=== PATIENT | male | born 1975 | race Caucasian/White ===

== ENCOUNTER 2019-12-10 06:12 | Inpatient (IN) ==
[2019-12-10] MEDS ORDERED: dilTIAZem HCl 5 MG/ML 5 ML VIAL IV STA (06:48)
[2019-12-10] MEDS ORDERED: STAT IV Infusion **Titration per Protocol STA (06:48)
[2019-12-10 06:54] LABS: Basophils # (auto) 0.04 K/uL (0-0.2); Basophils % (auto) 0.3 %; Eosinophils # (auto) 0.17 K/uL (0-0.5); Eosinophils % (auto) 1.3 %; Hematocrit (blood only) 46.3 % (42-52); Hemoglobin 15.7 g/dL (14.0-18.0); Immature Granulocytes # (auto) 0.03 K/uL (0.00-0.02); Immature Granulocytes % (auto) 0.2 %; Lymphocytes # (auto) 2.38 K/uL (1.2-3.4); Lymphocytes % (auto) 17.6 %; Mean Corpuscular Hemoglobin 31.7 pg (25-34); Mean Corpuscular Hgb Conc 33.9 g/dL (32-36); Mean Corpuscular Volume 93.5 fL (80-100); Mean Platelet Volume 11.6 fL (7.4-10.4); Monocytes # (auto) 0.84 K/uL (0.11-0.59); Monocytes % (auto) 6.2 %; Neutrophils # (auto) 10.07 K/uL (1.4-6.5); Neutrophils % (auto) 74.4 %; Platelet Count 276 K/uL (130-400); RDW Coefficient of Variation 12.9 % (11.5-14.5); RDW Standard Deviation 44.1 fL (36.4-46.3); Red Blood Count 4.95 M/uL (4.7-6.1); White Blood Count 13.53 K/uL (4.8-10.8)
[2019-12-10] MEDS ORDERED: SODIUM CHLORIDE 0.9% 500 ML IV SCH (07:00)
--- NOTE | 2019-12-10 07:04 | XRay Report ---
XR chest 1V portable CLINICAL HISTORY: Atypical chest pain COMPARISON STUDY: CT scan dated 12/02/2018 FINDINGS: The heart appears mildly enlarged. There is an old right clavicular fracture. There are equ ivocal wispy right perihilar airspace opacities. There is no lobar consolidation. There are no pleura l effusions. There is no failure.[ IMPRESSION: 1. Mild cardiomegaly 2. Equivocal wispy right perihilar airspace opacities ACT 112: Negative or not required by law. Electronically signed by: Alphonso Estrada M.D. 12/10/2019 7:02 AM
[2019-12-10] MEDS: dilTIAZem HCL 125 MG in DEXTROSE 5% 100 ML IV SCH ×2 (07:10→19:52)
[2019-12-10 07:13] LABS: Albumin Level 3.6 gm/dl (3.4-5.0); BUN Creatinine Ratio 10.3 (10-20); Calcium 9.7 mg/dl (8.5-10.1); Creatinine Clr Calc Pharmacy 94.7 ml/min; Est GFR (Non-African American) 75.9; Potassium 4.1 mmol/L (3.5-5.1)
[2019-12-10 07:16] LABS: Bilirubin,Total 0.9 mg/dl (0.2-1); Globulin 3.5 gm/dl (2.5-4.0); Total Protein 7.1 gm/dl (6.4-8.2)
[2019-12-10] MEDS ORDERED: KETOROLAC 30 MG/ML VIAL IV STA (07:22)
[2019-12-10] MEDS ORDERED: IOVERSOL 100ml IV ONE (07:36)
--- NOTE | 2019-12-10 07:54 | CT Scan Report ---
CT abd pelvis IV con only CLINICAL HISTORY: Left lower quadrant abdominal pain COMPARISON STUDY: 12/02/2018 TECHNIQUE: The patient was scanned in a dynamic helical fashion during intravenous administration of 94 cc of Optiray 320. A dose lowering technique was utilized adhering to the principles of ALARA. CT DOSE: 324.95 mGy.cm FINDINGS: Lower chest: There are small bilateral pleural effusions right greater than left. There is septal jason ma. Liver: There is stable 1 cm right lobe hepatic hypodensity, likely representing a cyst. There is mild periportal edema, finding which could be secondary to aggressive IV hydration. Gallbladder: There is mild pericholecystic fluid. No gallstones are visualized. Spleen: Normal in size and attenuation. Pancreas: Unremarkable. Adrenal glands: Unremarkable. Kidneys: There is interval development of lower pole left renal wedge-shaped hypodensity suspicious f or infarcts. Focal pyelonephritis developing abscesses could appear similar but is felt to be statist ically much less likely. Bowel: There are no transition zones indicate bowel obstruction. The appendix appears normal. There i s no acute diverticulitis. Peritoneum: There is no intraperitoneal free air or abdominal ascites. Vasculature: The abdominal aorta is normal in course and caliber. Adenopathy: None. Pelvic viscera: The bladder, and pelvic viscera are unremarkable. Skeletal structures: No destructive osseous lesions are seen. IMPRESSION: 1. Interval development of lower pole left renal wedge-shaped hypodensity suspicious for renal infarc ts 2. No evidence of bowel obstruction. No evidence of free air 3. Normal appendix. No evidence of acute diverticulitis 4. Bilateral pleural effusions right greater than left, and interstitial pulmonary edema 5. Periportal edema and pericholecystic fluid, likely secondary to passive congestion or aggressive h ydration. ACT 112: Negative or not required by law. Electronically signed by: Alphonso Estrada M.D. 12/10/2019 7:53 AM
[2019-12-10 08:04] LABS: INR 1.3 (0.9-1.1); Partial Thromboplastin Ratio 0.9; Partial Thromboplastin Time 25.7 Seconds (21.0-31.0); Prothrombin Time 13.4 Seconds (9.0-12.0)
--- NOTE | 2019-12-10 08:18 | Emergency Department Note ---
History of Present Illness General Chief complaint: Abdominal Pain Stated complaint: SEVERE ABDOMINAL PAIN,BACK PAIN Time Seen by Provider: 12/10/19 06:47 Source: patient Mode of arrival: ambulatory Limitations: no limitations History of Present Illness Provider complaint: Left lower quadrant abdominal pain Maximum Pain Intensity: 9 This is a 44-year-old male who presents to the ED with chief complaint of left lower quadrant abdominal pain. The patient states that it started around 1:30 in the morning. No radiation. He reports tenderness in the left lower quadrant as well. It seems to be worse this with walking. He has not taken anything for it. The patient was found by nursing staff to have elevated heart rate. Initial twelve-lead EKG showed A. fib with RVR with a heart rate in the 150s. The patient did report feeling a little pounding in his chest when he felt his chest the other day but does not seem to have much symptoms in the way of his A. fib with RVR. Home Medications Home Medications Medication Instructions Recorded Confirmed Type omeprazole 20 mg capsule,delayed 20 mg PO QAM #90 cap 04/17/19 12/10/19 Rx release Allergies Allergy/AdvReac Type Severity Reaction Status Date / Time No Known Allergies Allergy Unverified 12/10/19 06:21 Past Med/Surg History Medical History Alcohol abuse Anxiety Depression Drug abuse GERD without esophagitis Marijuana use Multiple facial fractures Surgical History No significant past surgical history Social History Smoking Status: Never smoker Hx Alcohol Use: Yes Alcohol type: beer Alcohol Intake Frequency Comment: 30 Hx Substance Use: Yes Preferred Language: Spanish marital status: Current Living Situation: Spouse and Family current occupational status: employed 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 Feels Safe at Home: Yes Dental Care, Regularly: No Physical Activity Frequency: Daily Physical Activity Frequency Comment: active physical job Seatbelt Use: always Sunscreen Use: Yes Review of Systems A total of 10 systems reviewed and were otherwise negative Physical Exam Vital Signs Vital Signs - 24 hr 12/10/19 06:15 12/10/19 06:42 12/10/19 06:53 Temperature 36.5 C Temperature Source Oral Pulse Rate 156 H 170 H Pulse Rate from SpO2 Sensor Respiratory Rate 20 27 H Respiratory Effort / Characteristics Non-Labored Spontaneous Respiratory Depth Normal Respiratory Pattern Regular Blood Pressure 127/99 179/60 H Blood Pressure Mean 108 119 Blood Pressure Position Sitting Pulse Oximetry 97 99 98 Oxygen Delivery Method Room Air Room Air Sepsis Recent Fever Within 48 Hours No Sepsis New/Unexplained Change in Mental Status No Sepsis Action Taken by Nursing No Action Required 12/10/19 07:09 12/10/19 07:13 12/10/19 07:32 Temperature Temperature Source Pulse Rate 137 H 128 H 122 H Pulse Rate from SpO2 Sensor 108 H 115 H Respiratory Rate 21 21 Respiratory Effort / Characteristics Respiratory Depth Respiratory Pattern Blood Pressure 134/86 115/91 98/77 L Blood Pressure Mean 104 98 97 Blood Pressure Position Pulse Oximetry 96 97 Oxygen Delivery Method Sepsis Recent Fever Within 48 Hours Sepsis New/Unexplained Change in Mental Status Sepsis Action Taken by Nursing 12/10/19 07:47 12/10/19 08:01 12/10/19 08:10 Temperature Temperature Source Pulse Rate 105 H 111 H 125 H Pulse Rate from SpO2 Sensor 76 85 Respiratory Rate 17 13 29 H Respiratory Effort / Characteristics Respiratory Depth Respiratory Pattern Blood Pressure 104/78 115/86 Blood Pressure Mean 91 91 Blood Pressure Position Pulse Oximetry 95 98 92 Oxygen Delivery Method Sepsis Recent Fever Within 48 Hours Sepsis New/Unexplained Change in Mental Status Sepsis Action Taken by Nursing 12/10/19 08:30 12/10/19 09:00 12/10/19 09:30 Temperature Temperature Source Pulse Rate 128 H 110 H 108 H Pulse Rate from SpO2 Sensor 82 81 88 Respiratory Rate 31 H 12 17 Respiratory Effort / Characteristics Respiratory Depth Respiratory Pattern Blood Pressure 107/83 124/88 118/69 Blood Pressure Mean 100 97 79 Blood Pressure Position Pulse Oximetry 96 96 97 Oxygen Delivery Method Sepsis Recent Fever Within 48 Hours Sepsis New/Unexplained Change in Mental Status Sepsis Action Taken by Nursing CONSTITUTIONAL/VITAL SIGNS: Reviewed / noted above. GENERAL: Non-toxic in appearance. INTEGUMENTARY: Warm, dry, and [place]. HEAD: Normocephalic. EYES: without scleral icterus or trauma. ENT/OROPHARYNX: clear and moist. LYMPHADENOPATHY/NECK: Is supple without lymphadenopathy or meningismus. RESPIRATORY: Lungs clear and equal. CARDIOVASCULAR: Rapid rate and irregular rhythm. GI/ABDOMEN: Soft and tender in the left lower quadrant. No organomegaly or pulsatile mass. No rebound or guarding. Normal bowel sounds. EXTREMITIES: Warm and well perfused. BACK: No CVA tenderness. NEUROLOGICAL: Intact without focal deficits. PSYCHIATRIC: normal affect. MUSCULOSKELETAL: Normally developed with good muscle tone. TRIAGE NURSING DOCUMENTATION REVIEWED. Course Administered Medications Diltiazem HCl 125 mg/ Dextrose 125 mls @ 10 mls/hr IV .[id number] RIGOBERTO; Protocol Stop: 01/09/20 06:59 Last Titration: 12/10/19 08:13 Dose: 10 mg/hr, 10 mls/hr Documented by: [id number] Cosigned by: [id number] Admin: 12/10/19 07:10 Dose: 5 mg/hr, 5 mls/hr Documented by: [id number] Cosigned by: [id number] Heparin Sodium/Dextrose (Heparin Sodium/Dextrose) 25,000 units in 500 mls @ 30 mls/hr IV .[id number] RIGOBERTO; Protocol Stop: 01/09/20 08:29 Last Admin: 12/10/19 09:36 Dose: 1,500 units/hr, 30 mls/hr Documented by: [id number] Cosigned by: [id number] Discontinued Medications Diltiazem HCl (Diltiazem Hcl 5 Mg/Ml 5 Ml Vial) 25 mg IV NOW STA Stop: 12/10/19 06:49 Last Admin: 12/10/19 07:07 Dose: 25 mg Documented by: [id number] Cosigned by: [id number] Heparin Sodium (Porcine) (Heparin Sod 5,000 Unit/0.5 Ml Vial) Confirm Administered Dose 10,000 units .ROUTE .STK-MED ONE Stop: 12/10/19 09:07 Last Admin: 12/10/19 09:38 Dose: Not Given Documented by: [id number] Heparin Sodium (Porcine) (Heparin Sod (Porcine) 1000 Unit/Ml 10 Ml Vial) Confirm Administered Dose 10,000 units .ROUTE .STK-MED ONE Stop: 12/10/19 09:29 Last Admin: 12/10/19 09:37 Dose: 7,000 units Documented by: [id number] Cosigned by: [id number] Heparin Sodium/Dextrose (Heparin Iv Standard With Bolus) 1 ea IV NOW STA; Protocol Stop: 12/10/19 08:29 Last Admin: 12/10/19 09:38 Dose: Not Given Documented by: [id number] Sodium Chloride (Nss) 500 mls @ 999 mls/hr IV .Q31M RIGOBERTO Stop: 12/10/19 07:30 Last Infusion: 12/10/19 07:39 Dose: 0 mls/hr Documented by: [id number] Admin: 12/10/19 07:08 Dose: 999 mls/hr Documented by: [id number] Ioversol (Ioversol 100ml) 94 ml IV ONCE ONE Stop: 12/10/19 07:37 Last Admin: 12/10/19 07:37 Dose: 94 ml Documented by: [id number] Ketorolac Tromethamine (Ketorolac 30 Mg/Ml Vial) 30 mg IV NOW STA Stop: 12/10/19 07:23 Last Admin: 12/10/19 07:49 Dose: 30 mg Documented by: [id number] Miscellaneous (Stat Iv Infusion Titration Per Protocol) 1 ea N/A NOW STA Stop: 12/10/19 06:49 Last Admin: 12/10/19 07:13 Dose: Not Given Documented by: [id number] Medical Decision Making Differential Diagnosis Differential considered: pancreatitis, hepatitis, acute cholecystitis, AAA, UTI, pyelonephritis, kidney stones, appendicitis, diverticulitis, shingles, bowel obstruction, mesenteric ischemia, intussusception,hernia, testicular torsion, The differential that was considered includes acute myocardial infarction, acute coronary syndrome, myocarditis, pericarditis, pericardial effusions /tamponade, esophageal perforation, thoracic aortic dissection, pulmonary embolism, pneumonia, pneumothorax, pancreatitis, shingles, acute cholecystitis, perforated abdominal viscus. Medical Records Attestation: I reviewed the patient's medical records. Home Medications Current Medication List: was personally reviewed by me Laboratory Data Attestation: I reviewed the patient's lab results. Result diagrams: 12/10/19 06:36 12/10/19 06:36 Lab Results 12/10/19 12/10/19 12/10/19 Range/Units 06:36 06:36 06:36 WBC 13.53 H (4.8-10.8) K/uL RBC 4.95 (4.7-6.1) M/uL Hgb 15.7 (14.0-18.0) g/dL Hct 46.3 (42-52) % MCV 93.5 (80-100) fL MCH 31.7 (25-34) pg MCHC 33.9 (32-36) g/dL RDW Std Deviation 44.1 (36.4-46.3) fL RDW Coeff of Sharmin 12.9 (11.5-14.5) % Plt Count 276 (130-400) K/uL MPV 11.6 H (7.4-10.4) fL Immature Gran % (Auto) 0.2 % Neut % (Auto) 74.4 % Lymph % (Auto) 17.6 % Pine % (Auto) 6.2 % Eos % (Auto) 1.3 % Baso % (Auto) 0.3 % Neut # (Auto) 10.07 H (1.4-6.5) K/uL Lymph # (Auto) 2.38 (1.2-3.4) K/uL Pine # (Auto) 0.84 H (0.11-0.59) K/uL Eos # (Auto) 0.17 (0-0.5) K/uL Baso # (Auto) 0.04 (0-0.2) K/uL Immature Gran # (Auto) 0.03 H (0.00-0.02) K/uL PT 13.4 H (9.0-12.0) Seconds INR 1.3 H (0.9-1.1) APTT 25.7 (21.0-31.0) Seconds PTT Ratio 0.9 Sodium 139 (136-145) mmol/L Potassium 4.1 (3.5-5.1) mmol/L Chloride 109 H (98-107) mmol/L Carbon Dioxide 23 (21-32) mmol/L Anion Gap 7.0 (3-11) BUN 12 (7-18) mg/dl Creatinine 1.17 (0.6-1.4) mg/dl Est Cr Clr Drug Dosing 94.7 ml/min Est GFR ( Amer) 88.0 Est GFR (Non-Af Amer) 75.9 BUN/Creatinine Ratio 10.3 (10-20) Glucose 159 H (70-99) mg/dl Calcium 9.7 (8.5-10.1) mg/dl Total Bilirubin 0.9 (0.2-1) mg/dl AST 24 (15-37) U/L ALT 45 (12-78) U/L Alkaline Phosphatase 74 (45-117) U/L Troponin I (0-0.045) ng/ml Total Protein 7.1 (6.4-8.2) gm/dl Albumin 3.6 (3.4-5.0) gm/dl Globulin 3.5 (2.5-4.0) gm/dl Albumin/Globulin Ratio 1.0 (0.9-2) Lipase 116 (73-393) U/L 12/10/19 Range/Units 06:36 WBC (4.8-10.8) K/uL RBC (4.7-6.1) M/uL Hgb (14.0-18.0) g/dL Hct (42-52) % MCV (80-100) fL MCH (25-34) pg MCHC (32-36) g/dL RDW Std Deviation (36.4-46.3) fL RDW Coeff of Sharmin (11.5-14.5) % Plt Count (130-400) K/uL MPV (7.4-10.4) fL Immature Gran % (Auto) % Neut % (Auto) % Lymph % (Auto) % Pine % (Auto) % Eos % (Auto) % Baso % (Auto) % Neut # (Auto) (1.4-6.5) K/uL Lymph # (Auto) (1.2-3.4) K/uL Pine # (Auto) (0.11-0.59) K/uL Eos # (Auto) (0-0.5) K/uL Baso # (Auto) (0-0.2) K/uL Immature Gran # (Auto) (0.00-0.02) K/uL PT (9.0-12.0) Seconds INR (0.9-1.1) APTT (21.0-31.0) Seconds PTT Ratio Sodium (136-145) mmol/L Potassium (3.5-5.1) mmol/L Chloride (98-107) mmol/L Carbon Dioxide (21-32) mmol/L Anion Gap (3-11) BUN (7-18) mg/dl Creatinine (0.6-1.4) mg/dl Est Cr Clr Drug Dosing ml/min Est GFR ( Amer) Est GFR (Non-Af Amer) BUN/Creatinine Ratio (10-20) Glucose (70-99) mg/dl Calcium (8.5-10.1) mg/dl Total Bilirubin (0.2-1) mg/dl AST (15-37) U/L ALT (12-78) U/L Alkaline Phosphatase (45-117) U/L Troponin I 0.019 (0-0.045) ng/ml Total Protein (6.4-8.2) gm/dl Albumin (3.4-5.0) gm/dl Globulin (2.5-4.0) gm/dl Albumin/Globulin Ratio (0.9-2) Lipase (73-393) U/L Imaging Data Radiologist's Impression: CT scan of the abdomen pelvis: IMPRESSION: 1. Interval development of lower pole left renal wedge-shaped hypodensity suspicious for renal infarcts 2. No evidence of bowel obstruction. No evidence of free air 3. Normal appendix. No evidence of acute diverticulitis 4. Bilateral pleural effusions right greater than left, and interstitial pul monary edema 5. Periportal edema and pericholecystic fluid, likely secondary to passive congestion or aggressive hydration. Chest x-ray:XR chest 1V portable CLINICAL HISTORY: Atypical chest pain COMPARISON STUDY: CT scan dated 12/02/2018 FINDINGS: The heart appears mildly enlarged. There is an old right clavicular fracture. There are equivocal wispy right perihilar airspace opacities. There is no lobar consolidation. There are no pleural effusions. There is no failure.[ IMPRESSION: 1. Mild cardiomegaly 2. Equivocal wispy right perihilar airspace opacities ECG Data Attestation: I personally reviewed and interpreted this ECG as follows: Indication: chest pain and tachycardia Rate (beats per minute): 158 Rhythm: atrial fibrillation Findings: no PVC and no ST elevation MDM Narrative This is a 44-year-old male who presents to the ED with a chief complaint of left lower quadrant abdominal pain. He was found to be in A. fib with RVR with a heart rate around 160. His vital signs were otherwise stable. He had tenderness on exam to the left lower quadrant. A CT scan of the abdomen pelvis reveals a left renal infarct. Chest x-ray was equivocal for a right perihilar airspace opacity. He does not have any clinical symptoms of pneumonia. CBC and chemistry panel was unremarkable. Troponin is negative. Twelve-lead EKG showed A. fib with a heart rate of 158. The patient was given IV Cardizem drip and Cardizem bolus. The patient was given IV heparin. He will be seen by the hospitalist for further inpatient evaluation and care. He was given IV Toradol for his discomfort. Impression & Plan Atrial fibrillation with RVR, Infarction of kidney Critical Care Time Critical Care Time: Yes Total Critical Care Time: 35 I have personally spent 35 minutes of critical care time in the direct management of this patient. This includes bedside care, interpretation of diagnostic studies, and testing, discussion with consultants, patient, and family members, and other required patient management activities. This 35 minutes is in excess of all separately billable procedures. Discharge Plan Visit Data Chief Complaint: Abdominal Pain Stated Complaint: SEVERE ABDOMINAL PAIN,BACK PAIN ED Provider: Honorio Stoddard Discharge Problem: Atrial fibrillation with RVR, Infarction of kidney Patient Disposition: Being Evaluated by Hospitalist Condition: Good Discharge Instructions Interventions: ED Discharge Assessment Last Done: 12/10/19 09:39 Forms Stand Alone Forms: My Care2Manage Prescriptions Prescriptions: No Action omeprazole 20 mg capsule,delayed release(DR/EC) 20 mg PO QAM Qty: 90 RF: 3 Referrals Referrals: Kristian Jarrett CRNP [Primary Care Provider] -
[2019-12-10] MEDS ORDERED: HEPARIN SOD 5,000 UNIT/0.5 ML VIAL ONE (09:06)
[2019-12-10] MEDS ORDERED: HEPARIN SOD (PORCINE) 1000 UNIT/ML 10 ML VIAL ONE (09:28)
[2019-12-10] MEDS: HEPARIN SODIUM/DEXTROSE 25,000 UNITS/500 ML BAG IV SCH (09:36)
[2019-12-10] MEDS ORDERED: ACETAMINOPHEN 325 MG TAB PO PRN (10:19)
[2019-12-10] MEDS ORDERED: POLYETHYLENE (MIRALAX) 17 GM PACK PO PRN (10:19)
[2019-12-10] MEDS ORDERED: ALUMINUM/MAGNESIUM SUSP 30 ML UDC PO PRN (10:19)
[2019-12-10] MEDS ORDERED: MAGNESIUM HYDROXIDE SUSP 30 ML UDC PO PRN (10:19)
[2019-12-10] MEDS: PANTOprazole 40 MG TAB PO SCH ×2 (11:56→12:34)
[2019-12-10] MEDS: MoRPHine SULFATE 2 MG/ML CARP IV PRN ×2 (11:57→15:30)
[2019-12-10 12:17] LABS: Appearance Urine Clear (Clear); Bacteria Urine Automated Negative (Negative); Blood Urine Negative (Negative); Color Urine Dark Yellow; Glucose Urine UA Negative (Negative); Ketones Urine Trace (Negative); Leukocyte Esterase Urine Negative (Negative); Nitrite Urine Negative (Negative); Protein Urine 2+ (Negative); RBC Urine Automated 0-4 /hpf (0-4); Urobilinogen Urine Negative (Negative); pH Urine 6.5 (4.5-7.5)
[2019-12-10 12:24] LABS: Specific Gravity Urine >= 1.045 (1.000-1.030)
--- NOTE | 2019-12-10 12:25 | XCELERA ---
[id number]
[2019-12-10 12:26] LABS: Bilirubin Urine Negative (Negative); Ictotest Urine Negative (Negative)
--- NOTE | 2019-12-10 14:08 | History & Physical Report ---
Date of Service December 10, 2019 Assessment & Plan (1) Atrial fibrillation with RVR: EtOH abuse vs ?underlying lung disease as culprits vs less likely idiopathic -rates improving on diltiazem - continue -continue heparin gtt - then anticipate transition to DOAC TSH ok in april (consider recheck as outpt - does not show other s/s hyperthyroid, rate control improving easily - and with whole clinical scenario high probability of sick euthyroid type reading - will hold on recheck now), echo ordered (2) Infarction of kidney: d/w nephro and vascular to confirm - but no intervention likely to be of benefit --> anticoagulation, supportive care. follow Cr. appears to be fairly small area on CT. Cr 1.17 now, up from 1.0 on last check -- continue to treand (3) Alcohol abuse: discussed need to reduce intake or cease - particularly given that ongoing EtOH intake will likely make afib harder to control (4) Industrial fumes exposure: given that chronic lung disease creating backpressure on R heart could be possible cause for afib (less likely than EtOH but possible) - CT chest to eval lung parenchyma (5) GERD without esophagitis: PPI (6) DVT prophylaxis: heparin gtt for now (7) Discharge planning issues: admit tele Admission and Anticipated Discharge Date Admission Date: December 10, 2019 History of Present Illness Chief Complaint: flank pain Primary Care Provider: AMINA Lozano woke up around 1:30 w flank pain -notes fairly intense and normally he notes he has a pretty high tolerance for pain. pain unremitting - came to ER for further eval - found to be in afib/RVR and also found to have renal infarct appearing to be embolic notes that for the last week or so he's had cough and mild dyspnea - not enough to get in the way of what he's normally doing - but still something noticeable. notes that last night she saw him breathing really heavily but he apparently didn't really feel sx then. 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 no other active / acute sx. ROS otherwise negative except for as above dad has CAD/pacer - first onset of heart disease probably mid 60's pt drinks about 6 beers a day, smokes marijuana more or less daily. 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 no surgical hx Allergies Allergy/AdvReac Type Severity Reaction Status Date / Time No Known Allergies Allergy Unverified 12/10/19 06:21 Home Medications Home Medications Medication Instructions Recorded Confirmed Type omeprazole 20 mg capsule,delayed 20 mg PO QAM #90 cap 04/17/19 12/10/19 Rx release Past Med/Surg History Medical History Alcohol abuse Anxiety Depression Drug abuse GERD without esophagitis Marijuana use Multiple facial fractures Surgical History No significant past surgical history Social History Smoking Status: Never smoker Do You Dip or Chew Tobacco: Yes; Tobacco Cessation Education Requested by Patient: No Hx Alcohol Use: Yes Alcohol type: beer Alcohol Intake Frequency Comment: 30 Hx Substance Use: Yes Preferred Language: [place]an Communication Ability: Effective Beliefs That Will Affect Care: None marital status: Current Living Situation: Spouse current occupational status: employed 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 Other Information That Helps Us Care for You: No Feels Safe at Home: Yes Safety Concerns: Feels Safe At This Time Dental Care, Regularly: No Physical Activity Frequency: Daily Physical Activity Frequency Comment: active physical job Seatbelt Use: always Sunscreen Use: Yes Assistive Devices: None Review of Systems Review of Systems: All systems reviewed & are unremarkable except as noted in HPI & below Physical Exam Physical Exam: gen aaox3 pleasant nad heent nc at mmm cardio irreg irreg rate around 100-120 when i see him no noted r/m/g lungs faint base crackles nonspecific no other r/r/w good effort no accessory muscle use. occassional faint dry cough no conversational dyspnea abd soft nd (+) L abd and L CVA tenderness no guarding no rebound no rigidity ext no c/c/e no calf tenderness skin no rashes no pallor or icterus neuro cn 2-12 grossly intact gross motor and sensory intact without notable focal deficits msk - normal spinal alignment, CVA tenderness does not appear to reflect rib or muscle tenderness. no notable joint effusions or restrictions mental good recent and remote recall normal (quite stoic) mood and affect good judgement and insight Results & Data Results & Data ([facility]) Vital Signs (Past 12 Hours) Vital Signs Temp Pulse Pulse Resp BP BP Pulse Ox 12/10/19 10:19 97.7 F 81 20 103/46 L 95 12/10/19 09:30 108 H 17 118/69 97 12/10/19 09:00 110 H 12 124/88 96 12/10/19 08:30 128 H 31 H 107/83 96 12/10/19 08:10 125 H 29 H 92 12/10/19 08:01 111 H 13 115/86 98 12/10/19 07:47 105 H 17 104/78 95 12/10/19 07:32 122 H 98/77 L 12/10/19 07:13 128 H 21 115/91 97 12/10/19 07:09 137 H 21 134/86 96 12/10/19 06:53 98 12/10/19 06:42 170 H 27 H 179/60 H 99 12/10/19 06:15 97.7 F 156 H 20 127/99 97 Code Status & VTE Plan VTE Prophylaxis Plan VTE Prophylaxis will be ordered: Yes PG Care Time/CCT Total # of Minutes Spent Total Time Spent with Patient: Total time spent is greater than 50% in coordination of care (as documented) at patient's floor/unit and/or counseling patient: Coding Level of Care Code 36882 Initial Inpt Care Lvl 3 Diagnoses Atrial fibrillation with RVR I48.91 Infarction of kidney N28.0 Alcohol abuse F10.10 Industrial fumes exposure Z77.098 GERD without esophagitis K21.9 DVT prophylaxis Z29.9 Discharge planning issues Z02.9
[2019-12-10] MEDS: ONDANSETRON INJ 2 MG/ML 2 ML VIAL IV PRN (15:30)
[2019-12-10] MEDS ORDERED: HYDROmorphone INJ 1 MG/ML SYRINGE IV PRN (15:42)
[2019-12-10 16:31] LABS: Partial Thromboplastin Ratio 2.2
[2019-12-10 16:36] LABS: Partial Thromboplastin Time 62.1 Seconds (21.0-31.0)
--- NOTE | 2019-12-10 18:31 | Cardiology Consultation ---
Date of Consultation December 10, 2019 Assessment & Plan (1) Atrial fibrillation with RVR: (2) Dilated cardiomyopathy: (3) Chronic systolic heart failure: (4) Mitral regurgitation: (5) Pulmonary hypertension: (6) Alcohol abuse: (7) Infarction of kidney: ASSESSMENT/PLAN: 1. AFib with RVR: We discussed the diagnosis in detail. AFib could be due to alcohol, cardiomyopathy, or mitral regurgitation. Would suspect alcohol is playing a large role. Agree with rate control strategy, especially as he has demonstrated embolic event with renal infarct. Given CHF, would recommend discontinuation of diltiazem. Start metoprolol tartrate 25 mg p.o. q.6 hours. Can also add digoxin if necessary. Agree with anticoagulation therapy. If cannot achieve rate control, would then recommend transesophageal echo and cardioversion. Otherwise, would anticoagulate for 4 weeks and then cardiovert given recent embolic event. 2. Cardiomyopathy: Likely due to alcohol or tachycardia in the setting of AFib. It is less likely that this is primarily from his mitral valve given the fact that his mitral valve appears otherwise structurally normal with annular dilation, likely from his cardiomyopathy. Initiating metoprolol but on discharge would recommend metoprolol succinate. Recommend Entresto later this hospitalization. Given orthopnea and rales, will give 1 dose of Lasix. Start spironolactone 25 mg. We discussed the fact that alcohol cessation and rate control should hopefully improve his LV systolic function. If there is no significant improvement in his LV systolic function with standard treatment and alcohol cessation, would consider ischemic evaluation. There is no urgent indication for angiography. He has no angina despite regular cardiovascular exercise/activity. Will first attempt to optimize medical therapy and then reassess. 3. Chronic systolic CHF: He has been having symptoms for approximately 3 weeks consistent with CHF, especially given his findings today. He does not appear to be severely hypervolemic but likely to have elevated left-sided filling pressures. Lasix 20 mg IV x1. Strict I&Os. Daily weights. Low-sodium diet. 4. Mitral regurgitation: Likely due to annular dilation from his cardiomyopathy. Hopefully with improvement in his LV systolic function, MR will improve. Will continue to monitor. 5. Pulmonary hypertension: Likely secondary to severe MR/CHF. Diurese as above. 6. Alcohol abuse: We discussed in detail the importance of alcohol cessation. Alcohol is a direct toxin to his myocardium and should be avoided. Monitor for withdrawal symptoms. 7. Renal infarct: As per primary service. On heparin drip. Likely due to cardiac embolic source from left atrial appendage or even possibly LV thrombus given reduced LV systolic function. There was no thrombus noted on echo. 8. Disposition: Cardiology will continue to follow. Patient care was discussed with Dr. Arzate of the primary hospitalist service. Highly complex medical issues. Thank you for allowing me to participate in the care of your patient. Please call for any other questions or concerns. Sincerely, Yonis Briseno M.D. History of Present Illness Reason for Consultation: Afib with mitral regurgitation and CHF Requesting Physician: Tamir Arzate DO Attending Physician: Tamir Arzate DO History of Present Illness Mr. Bearden is a very pleasant 44-year-old gentleman with a history of alcohol abuse, who presented on 12/02/2019 with acute left sided abdominal pain. He was noted to be in atrial fibrillation with rapid ventricular response and also diagnosed with left renal infarct. At approximately 1:30 a.m., he was awakened by left lower abdominal pain. He was able to go back to sleep and at 5:00 a.m. the pain became much more severe. He came to the emergency department for further evaluation. He was found to be in atrial fibrillation with rapid ventricular response, a new diagnosis for him. He admits that he felt his heart racing a couple of days ago for 2 or 3 minutes. He thought it was anxiety. He was asymptomatic from his AFib today, denying palpitations. He denies shortness of breath with exertion. He denies chest pain, syncope, near-syncope, edema, bleeding such as melena, hematochezia, or hematuria. Last week, he hunted bear, estimating 120 miles in the [facility] over a 5 day span. He denied dyspnea or chest discomfort despite significant cardiovascular exercise. He has been experiencing orthopnea however for the past 3 weeks. 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 He states that he has had this before but it typically resolves within 1 week. His symptoms this time however have persisted for 3 weeks. He has been sleeping with his head elevated. He admits to consuming a six-pack of beer per day and up to 12-13 beers each day on the weekend. He has been doing this since the age of 19. He admits that he has had some close calls health [place] with his alcohol consumption. Last year, he lost a good friend due to alcohol. While here, emergency department initiated diltiazem drip with improvement of his heart rate. During her visit earlier today, he denied any specific symptoms other than abdominal discomfort. Review of systems: As above. Review of systems otherwise negative/unremarkable. Family history: Father has pacemaker. Paternal grandfather from [place] at the age of 92. Social history: Quit smoking in approximately 2002 after approximately 3 pack years. Consumes a six-pack of beer per day with 12-13 beers each day on the weekend. Has been consuming alcohol heavily since the age of 19. Smokes marijuana. No other drugs. Lives at home with his and 2 daughters. 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 He was unaccompanied. Allergies Allergy/AdvReac Type Severity Reaction Status Date / Time No Known Allergies Allergy Unverified 12/10/19 06:21 Home Medications Home Medications Medication Instructions Recorded Confirmed Type omeprazole 20 mg capsule,delayed 20 mg PO QAM #90 cap 04/17/19 12/10/19 Rx release Patient History Medical History Alcohol abuse Anxiety Depression Drug abuse GERD without esophagitis Marijuana use Multiple facial fractures Surgical History No significant past surgical history Social History Smoking Status: Never smoker Do You Dip or Chew Tobacco: Yes; Tobacco Cessation Education Requested by Patient: No Hx Alcohol Use: Yes Alcohol type: beer Alcohol Intake Frequency Comment: 30 Hx Substance Use: Yes Preferred Language: [place] Communication Ability: Effective Beliefs That Will Affect Care: None marital status: Current Living Situation: Spouse current occupational status: employed 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 Alert and oriented. HEENT: Anicteric sclera. Neck: Mild JVD. No bruits. Normal carotid upstrokes bilaterally. Cardiac: PMI was nondisplaced. No ventricular heave. Irregularly irregular.. Normal S1-S2. 2/6 holosystolic murmur best heard at the apex. No rubs or gallops. Pulmonary: Bibasilar rales. Abdomen: Soft, nondistended, with normoactive bowel sounds. No bruits noted. Tenderness noted, especially left lower quadrant. Extremities: 2+ radial pulses bilaterally. 2+ posterior tibialis pulses bilaterally. No edema or cyanosis. No palpable cords. Psychiatric: Affect appears appropriate. Results & Data ([facility]) Vital Signs (Past 12 Hours) Vital Signs Temp Pulse Pulse Resp BP BP Pulse Ox 12/10/19 15:29 36.4 C L 91 H 20 120/75 97 12/10/19 10:19 36.5 C 81 20 103/46 L 95 12/10/19 09:30 108 H 17 118/69 97 12/10/19 09:00 110 H 12 124/88 96 12/10/19 08:30 128 H 31 H 107/83 96 12/10/19 08:10 125 H 29 H 92 12/10/19 08:01 111 H 13 115/86 98 12/10/19 07:47 105 H 17 104/78 95 12/10/19 07:32 122 H 98/77 L 12/10/19 07:13 128 H 21 115/91 97 12/10/19 07:09 137 H 21 134/86 96 12/10/19 06:53 98 12/10/19 06:42 170 H 27 H 179/60 H 99 Intake & Output 12/08/19 12/09/19 12/10/19 12/11/19 06:59 06:59 06:59 06:59 Intake Total 857.417 / 857.417 Output Total 200 / 200 Balance 657.417 / 657.417 Weight 86.3 kg 86.3 kg Laboratory Results Laboratory Results - last 24 hr 12/10/19 12/10/19 12/10/19 06:36 06:36 06:36 WBC 13.53 H RBC 4.95 Hgb 15.7 Hct 46.3 MCV 93.5 MCH 31.7 MCHC 33.9 RDW Std Deviation 44.1 RDW Coeff of Sharmin 12.9 Plt Count 276 MPV 11.6 H Immature Gran % (Auto) 0.2 Neut % (Auto) 74.4 Lymph % (Auto) 17.6 [place] % (Auto) 6.2 Eos % (Auto) 1.3 Baso % (Auto) 0.3 Neut # (Auto) 10.07 H Lymph # (Auto) 2.38 [place] # (Auto) 0.84 H Eos # (Auto) 0.17 Baso # (Auto) 0.04 Immature Gran # (Auto) 0.03 H PT 13.4 H INR 1.3 H APTT 25.7 PTT Ratio 0.9 Sodium 139 Potassium 4.1 Chloride 109 H Carbon Dioxide 23 Anion Gap 7.0 BUN 12 Creatinine 1.17 Est Cr Clr Drug Dosing 94.7 Est GFR ( Amer) 88.0 Est GFR (Non-Af Amer) 75.9 BUN/Creatinine Ratio 10.3 Glucose 159 H Calcium 9.7 Total Bilirubin 0.9 AST 24 ALT 45 Alkaline Phosphatase 74 Troponin I Total Protein 7.1 Albumin 3.6 Globulin 3.5 Albumin/Globulin Ratio 1.0 Lipase 116 Urine Color Urine Appearance Urine pH Ur Specific [place] Urine Protein Urine Glucose (UA) Urine Ketones Urine Blood Urine Nitrite Urine Bilirubin Urine Urobilinogen Ur Leukocyte Esterase Urine WBC (Auto) Urine RBC (Auto) U Hyaline Cast (Auto) U Epithel Cells (Auto) Urine Bacteria (Auto) 12/10/19 12/10/19 12/10/19 06:36 11:15 15:48 WBC RBC Hgb Hct MCV MCH MCHC RDW Std Deviation RDW Coeff of Sharmin Plt Count MPV Immature Gran % (Auto) Neut % (Auto) Lymph % (Auto) [place] % (Auto) Eos % (Auto) Baso % (Auto) Neut # (Auto) Lymph # (Auto) [place] # (Auto) Eos # (Auto) Baso # (Auto) Immature Gran # (Auto) PT INR APTT 62.1 H* PTT Ratio 2.2 Sodium Potassium Chloride Carbon Dioxide Anion Gap BUN Creatinine Est Cr Clr Drug Dosing Est GFR ( Amer) Est GFR (Non-Af Amer) BUN/Creatinine Ratio Glucose Calcium Total Bilirubin AST ALT Alkaline Phosphatase Troponin I 0.019 Total Protein Albumin Globulin Albumin/Globulin Ratio Lipase Urine Color Dark Yellow Urine Appearance Clear Urine pH 6.5 Ur Specific [place] >= 1.045 H Urine Protein 2+ H Urine Glucose (UA) Negative Urine Ketones Trace H Urine Blood Negative Urine Nitrite Negative Urine Bilirubin Negative Urine Urobilinogen Negative Ur Leukocyte Esterase Negative Urine WBC (Auto) 1-5 Urine RBC (Auto) 0-4 U Hyaline Cast (Auto) 1-5 U Epithel Cells (Auto) 5-10 H Urine Bacteria (Auto) Negative Diagnostic Findings telemetry personally reviewed: Atrial fibrillation with improved heart rate on diltiazem. ECG personally reviewed: ECG 12/10/2019: AFib with RVR 158 bpm. Echo 12/10/2019: Images personally reviewed. Severely dilated left ventricle with severely reduced systolic function. EF 20-25%. Global hypokinesis. Mild LVH. Moderately dilated RV with mildly reduced systolic function. Severe biatrial dilation. Severe MR. Mitral valve leaflets do not fully coapt during systole. Mild to moderate TR. RVSP 47. CT abdomen /pelvis 12/10/2019: Lower pole left renal which shaped hypodensity suspicious for renal infarcts could bilateral pleural effusions, right greater than left. Interstitial pulmonary edema. Periportal edema and darya cholecystic fluid, likely secondary to passive congestion or aggressive hydration. Medications Administered Current Inpatient Medications Acetaminophen (Acetaminophen 325 Mg Tab) 650 mg PO Q4H PRN PRN Reason: Pain Stop: 01/09/20 10:18 Al Hydrox/Mg Hydrox/Simethicone (Aluminum/Magnesium Susp 30 Ml Udc) 15 ml PO Q4H PRN PRN Reason: Dyspepsia Stop: 01/09/20 10:18 Hydromorphone HCl (Hydromorphone Inj 1 Mg/Ml Syringe) 1 mg IV Q2H PRN PRN Reason: Pain Stop: 12/24/19 15:41 Last Admin: 12/10/19 15:49 Dose: 1 mg Documented by: Diltiazem HCl 125 mg/ Dextrose 125 mls @ 10 mls/hr IV .[id number] [facility]; Protocol Stop: 01/09/20 06:59 Last Admin: 12/10/19 19:52 Dose: Not Given Documented by: Heparin Sodium/Dextrose (Heparin Sodium/Dextrose) 25,000 units in 500 mls @ 30 mls/hr IV .[id number] [facility]; Protocol Stop: 01/09/20 08:29 Last Admin: 12/10/19 09:36 Dose: 1,500 units/hr, 30 mls/hr Documented by: Magnesium Hydroxide (Magnesium Hydroxide Susp 30 Ml Udc) 30 ml PO Q12H PRN PRN Reason: Constipation Stop: 01/09/20 10:18 Metoprolol Tartrate (Metoprolol Tartrate 25 Mg Tab) 25 mg PO Q6H RIGOBERTO Stop: 01/09/20 18:59 Last Admin: 12/10/19 19:26 Dose: 25 mg Documented by: Morphine Sulfate (Morphine Sulfate 2 Mg/Ml Carp) 4 mg IV Q4 PRN PRN Reason: Pain Stop: 12/24/19 10:18 Last Admin: 12/10/19 15:30 Dose: 4 mg Documented by: Ondansetron HCl (Ondansetron Inj 2 Mg/Ml 2 Ml Vial) 4 mg IV Q6H PRN PRN Reason: Nausea Stop: 01/09/20 10:18 Last Admin: 12/10/19 15:30 Dose: 4 mg Documented by: Pantoprazole Sodium (Pantoprazole 40 Mg Tab) 40 mg PO DAILY RIGOBERTO Stop: 01/09/20 10:44 Last Admin: 12/10/19 12:34 Dose: 40 mg Documented by: Polyethylene Glycol (Polyethylene (Miralax) 17 Gm Pack) 17 gm PO DAILY PRN PRN Reason: Constipation Stop: 01/09/20 10:18 Spironolactone (Spironolactone 25 Mg Tab) 25 mg PO QAM RIGOBERTO Stop: 01/09/20 18:44 Last Admin: 12/10/19 19:26 Dose: 25 mg Documented by: PG Care Time/CCT Total # of Minutes Spent Total Time Spent with Patient: Total time spent is greater than 50% in coordination of care (as documented) at patient's floor/unit and/or counseling patient: Coding Level of Care Code 80796 Inpt Consult Level 5 Diagnoses Atrial fibrillation with RVR I48.91 Dilated cardiomyopathy I42.0 Chronic systolic heart failure I50.22 Mitral regurgitation I34.0 Pulmonary hypertension I27.20 Alcohol abuse F10.10 Infarction of kidney N28.0
[2019-12-10] MEDS ORDERED: FUROSEMIDE 20 MG in SYRINGE 0 ML IV ONE (19:00)
[2019-12-10] MEDS: SPIRONOLACTONE 25 MG TAB PO SCH (19:26)
[2019-12-10] MEDS: METOPROLOL TARTRATE 25 MG TAB PO SCH (19:26)
[2019-12-11] MEDS: HEPARIN SODIUM/DEXTROSE 25,000 UNITS/500 ML BAG IV SCH ×2 (01:02→16:43)
[2019-12-11] MEDS: METOPROLOL TARTRATE 25 MG TAB PO SCH ×4 (01:02→19:47)
[2019-12-11 04:16] LABS: Basophils # (auto) 0.03 K/uL (0-0.2); Basophils % (auto) 0.2 %; Eosinophils # (auto) 0.03 K/uL (0-0.5); Eosinophils % (auto) 0.2 %; Hematocrit (blood only) 49.7 % (42-52); Hemoglobin 16.5 g/dL (14.0-18.0); Immature Granulocytes # (auto) 0.06 K/uL (0.00-0.02); Immature Granulocytes % (auto) 0.4 %; Lymphocytes # (auto) 2.16 K/uL (1.2-3.4); Lymphocytes % (auto) 13.5 %; Mean Corpuscular Hemoglobin 32.1 pg (25-34); Mean Corpuscular Hgb Conc 33.2 g/dL (32-36); Mean Corpuscular Volume 96.7 fL (80-100); Mean Platelet Volume 11.6 fL (7.4-10.4); Monocytes # (auto) 1.55 K/uL (0.11-0.59); Monocytes % (auto) 9.7 %; Neutrophils # (auto) 12.12 K/uL (1.4-6.5); Platelet Count 273 K/uL (130-400); RDW Coefficient of Variation 13.1 % (11.5-14.5); RDW Standard Deviation 46.1 fL (36.4-46.3); Red Blood Count 5.14 M/uL (4.7-6.1); White Blood Count 15.95 K/uL (4.8-10.8)
[2019-12-11 04:31] LABS: BUN Creatinine Ratio 9.9 (10-20); Calcium 9.5 mg/dl (8.5-10.1); Creatinine Clr Calc Pharmacy 75.3 ml/min; Est GFR (African American) 66.8; Est GFR (Non-African American) 57.6; Magnesium 1.9 mg/dl (1.8-2.4); Potassium 3.9 mmol/L (3.5-5.1)
[2019-12-11 04:40] LABS: Partial Thromboplastin Ratio 1.7
[2019-12-11 05:02] LABS: Partial Thromboplastin Time 46.4 Seconds (21.0-31.0)
--- NOTE | 2019-12-11 06:10 | Electrocardiogram Report ---
Test Reason : Blood Pressure : / mmHG Vent. Rate : 158 BPM Atrial Rate : 340 BPM P-R Int : 000 ms QRS Dur : 092 ms QT Int : 308 ms P-R-T Axes : 000 102 056 degrees QTc Int : 499 ms Atrial fibrillation with rapid ventricular response Rightward axis Abnormal ECG When compared with ECG of 02-DEC-2018 10:59, Atrial fibrillation has replaced Sinus rhythm Vent. rate has increased BY 60 BPM Nonspecific T wave abnormality now evident in Lateral leads Confirmed by Geovanny Briseno ([id number]) on 12/11/2019 6:09:49 AM Referred By: ED Confirmed By:Geovanny Briseno
[2019-12-11] MEDS: SPIRONOLACTONE 25 MG TAB PO SCH (08:20)
[2019-12-11] MEDS: PANTOprazole 40 MG TAB PO SCH (08:21)
[2019-12-11] MEDS ORDERED: DIGOXIN 500 MCG/2 ML AMP IV ONE (09:14)
[2019-12-11] MEDS ORDERED: LORazepam 3 MG/6 ML VIAL IV PRN (09:16)
[2019-12-11] MEDS ORDERED: LORazepam 1 MG/2 ML VIAL IV PRN ×2 (09:16)
[2019-12-11] MEDS ORDERED: chlordiazePOXIDE ALCOHOL WITHDRAWL 25MG PO STA (09:16)
[2019-12-11] MEDS ORDERED: ATIVAN IV ALCOHOL WITHDRAWL IV PRN (09:16)
[2019-12-11] MEDS ORDERED: LORazepam 2 MG/4 ML VIAL IV PRN (09:16)
[2019-12-11] MEDS ORDERED: DIGOXIN 500 MCG in SYRINGE 9 ML IV ONE (09:35)
[2019-12-11] MEDS: chlordiazePOXIDE HCl 25 MG CAP PO SCH ×3 (09:58→22:42)
[2019-12-11] MEDS ORDERED: THIAMINE HCL 100 MG TAB PO SCH (10:00)
--- NOTE | 2019-12-11 10:01 | Hospitalist Progress Note ---
Date of Service December 11, 2019 Assessment & Plan (1) Atrial fibrillation with RVR: 44 yo with newly diagnosed Afib with RVR, CHF, Renal Infarct this admission. 1. Afib w/ RVR - Appreciate cardiology's continuing recommendations in this complex case - Metoprolol tartrate q6H for rate control - digoxin 0.250 mg started today - heparin drip for anticoagulation - telemetry monitoring - will need to transition tartrate to succinate after rate control achieved 2. Cardiomyopathy + CHF - TTE 12/09 showing MR, EF 20-25%, global hypokinesis as above in results section - most likely secondary to long running afib? 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 Infarcted Kidney - found on CT abd/pelv, wedge shaped lesion - most likely clot thrown from left heart with uncoagulated afib - possibly source of abdominal pain? Abdominal pain - would expect mesenteric ischemia to be pain worsened after eating, which patient denies - pain out of proportion to exam however without rebound or guarding - kidney pain referred to abdomen?? Concern for alcohol withdrawal - usually drinks 12 beers daily - last drink friday 12/08 - started on AWSS protocol, however symptoms of diaphoresis, anxiety could also be evident with uncontrolled AFib DVT ppx: heparin drip FEN/GI: heart healthy diet Code Status: FULL CODE Dispo: PCU (2) Alcohol abuse: (3) Pulmonary hypertension: (4) Mitral regurgitation: (5) Dilated cardiomyopathy: (6) Infarction of kidney: Admission and Anticipated Discharge Date Admission Date: December 10, 2019 Supervising Physician Co-Signing Physician Notes I personally examined the patient and verified all vincent points of history and exam, discussed case, and agree with decision making with Dr Thayer. this AM felt dyspnea and diaphoresis laying down - then once he put up HOB he felt much better fairly quickly. later revisited, feeling fine. vitals noted nad heent nc at mmm cardio irreg irreg still tachy no r/m/g lungs mostly clear question faint rale base L>R no focal neuro deficits new onset afib/RVR w subsequent embolic acute kidney injury - rate control, anticoagluation, follow Cr, supportive care acute on chronic HFrEF - question EtOH driving CHF, MR driving CHF, or both. diurese, slow rate, follow closely EtOH abuse - follow closely for withdrawal, none now, protocol in place if needed otherwise as above Subjective Ill appearing, medically complex 44 yo M admitted renal infarct and new afib with RVR. This morning feeling notably unwell, diaphoretic, aware of palpitations with HR in 120-140s. Denies chest pain, does have shortness of breath. no pain with inspiration. no cough. no lightheadedness or dizziness. Also having abdominal pain that waxes and wanes. Says sometimes pressing into abdomen relieves pain as if he's "pushing it down", but other times abdomen is exquisitely tender to palpation. Not much of an appetite. Review of Systems Constitutional: + fatigue and + weakness; no fever and no chills Respiratory: + dyspnea; no pain on inspiration Cardiovascular: + orthopnea and + palpitations; no chest pain, no lightheadedness and no edema Gastrointestinal: + abdominal pain, + nausea and + constant urge to pass stools; no cramping Musculoskeletal: + back pain Physical Exam Physical Exam: Constitutional: tall thin man in mild distress laying in bed, visibly uncomfortable Eyes: EOMI, pupils equal and reactive bilaterally, no scleral icterus Cardiac: Afib, tachycardic with rate ~130, no murmurs discernable Pulm: CTA BL, no wheezes, rhonchi, crackles or rubs, moving air well throughout both lungs, no extra work of breathing Abd: soft, nondistended, very tender to slight palpation diffusely throughout abdomen, no rebound or guarding Extremities: 2+ peripheral pulses, no edema Neuro: no focal deficits, moving all 4 limbs, A&Ox3 Results & Data Results & Data ([facility]) Vital Signs (Past 12 Hours) Vital Signs Temp Pulse Pulse Resp BP Pulse Ox 12/11/19 09:57 128 H 12/11/19 07:38 36.4 C L 118 H 18 98/65 L 98 12/11/19 07:00 107 H 12/11/19 04:11 36.4 C L 113 H 18 98/72 L 94 12/11/19 01:01 95 H 112/72 12/10/19 23:48 36.6 C 80 18 90/63 L 94 Laboratory Results WBC 15.95 K/uL (4.8-10.8) H 12/11/19 04:05 RBC 5.14 M/uL (4.7-6.1) 12/11/19 04:05 Hgb 16.5 g/dL (14.0-18.0) 12/11/19 04:05 Hct 49.7 % (42-52) 12/11/19 04:05 MCV 96.7 fL (80-100) 12/11/19 04:05 MCH 32.1 pg (25-34) 12/11/19 04:05 MCHC 33.2 g/dL (32-36) 12/11/19 04:05 RDW Std Deviation 46.1 fL (36.4-46.3) 12/11/19 04:05 RDW Coeff of Sharmin 13.1 % (11.5-14.5) 12/11/19 04:05 Plt Count 273 K/uL (130-400) 12/11/19 04:05 MPV 11.6 fL (7.4-10.4) H 12/11/19 04:05 Immature Gran % (Auto) 0.4 % 12/11/19 04:05 Neut % (Auto) 76.0 % 12/11/19 04:05 Lymph % (Auto) 13.5 % 12/11/19 04:05 [place] % (Auto) 9.7 % 12/11/19 04:05 Eos % (Auto) 0.2 % 12/11/19 04:05 Baso % (Auto) 0.2 % 12/11/19 04:05 Neut # (Auto) 12.12 K/uL (1.4-6.5) H 12/11/19 04:05 Lymph # (Auto) 2.16 K/uL (1.2-3.4) 12/11/19 04:05 [place] # (Auto) 1.55 K/uL (0.11-0.59) H 12/11/19 04:05 Eos # (Auto) 0.03 K/uL (0-0.5) 12/11/19 04:05 Baso # (Auto) 0.03 K/uL (0-0.2) 12/11/19 04:05 Immature Gran # (Auto) 0.06 K/uL (0.00-0.02) H 12/11/19 04:05 PT 13.4 Seconds (9.0-12.0) H 12/10/19 06:36 INR 1.3 (0.9-1.1) H 12/10/19 06:36 APTT 46.4 Seconds (21.0-31.0) H* 12/11/19 04:05 PTT Ratio 1.7 12/11/19 04:05 Sodium 138 mmol/L (136-145) 12/11/19 04:05 Potassium 3.9 mmol/L (3.5-5.1) 12/11/19 04:05 Chloride 104 mmol/L (98-107) 12/11/19 04:05 Carbon Dioxide 27 mmol/L (21-32) 12/11/19 04:05 Anion Gap 7.0 (3-11) 12/11/19 04:05 BUN 15 mg/dl (7-18) 12/11/19 04:05 Creatinine 1.47 mg/dl (0.6-1.4) H D 12/11/19 04:05 Est Cr Clr Drug Dosing 75.3 ml/min 12/11/19 04:05 Est GFR ( Amer) 66.8 12/11/19 04:05 Est GFR (Non-Af Amer) 57.6 12/11/19 04:05 BUN/Creatinine Ratio 9.9 (10-20) L 12/11/19 04:05 Glucose 162 mg/dl (70-99) H 12/11/19 04:05 Calcium 9.5 mg/dl (8.5-10.1) 12/11/19 04:05 Magnesium 1.9 mg/dl (1.8-2.4) 12/11/19 04:05 Total Bilirubin 0.9 mg/dl (0.2-1) 12/10/19 06:36 AST 24 U/L (15-37) 12/10/19 06:36 ALT 45 U/L (12-78) 12/10/19 06:36 Alkaline Phosphatase 74 U/L (45-117) 12/10/19 06:36 Troponin I 0.019 ng/ml (0-0.045) 12/10/19 06:36 C-Reactive Protein 0.34 mg/dl (0-0.29) H 12/11/19 04:05 Total Protein 7.1 gm/dl (6.4-8.2) 12/10/19 06:36 Albumin 3.6 gm/dl (3.4-5.0) 12/10/19 06:36 Globulin 3.5 gm/dl (2.5-4.0) 12/10/19 06:36 Albumin/Globulin Ratio 1.0 (0.9-2) 12/10/19 06:36 Lipase 116 U/L (73-393) 12/10/19 06:36 Urine Color Dark Yellow 12/10/19 11:15 Urine Appearance Clear (Clear) 12/10/19 11:15 Urine pH 6.5 (4.5-7.5) 12/10/19 11:15 Ur Specific [place] >= 1.045 (1.000-1.030) H 12/10/19 11:15 Urine Protein 2+ (Negative) H 12/10/19 11:15 Urine Glucose (UA) Negative (Negative) 12/10/19 11:15 Urine Ketones Trace (Negative) H 12/10/19 11:15 Urine Blood Negative (Negative) 12/10/19 11:15 Urine Nitrite Negative (Negative) 12/10/19 11:15 Urine Bilirubin Negative (Negative) 12/10/19 11:15 Urine Urobilinogen Negative (Negative) 12/10/19 11:15 Ur Leukocyte Esterase Negative (Negative) 12/10/19 11:15 Urine WBC (Auto) 1-5 /hpf (0-5) 12/10/19 11:15 Urine RBC (Auto) 0-4 /hpf (0-4) 12/10/19 11:15 U Hyaline Cast (Auto) 1-5 /lpf (0-5) 12/10/19 11:15 U Epithel Cells (Auto) 5-10 /lpf (0-5) H 12/10/19 11:15 Urine Bacteria (Auto) Negative (Negative) 12/10/19 11:15 TTE 12/10/19: 1. Severely dilated left ventricle with severely reduced systolic function, EF 20-25%. Global hypokinesis, mild concentric L ventricular hypertrophy 2. Moderately dilated right ventricle with mildly reduced systolic function 3. Severe biatrial dilation 4. Severe mitral regurgitation. Mitral valve leaflets do not fully coapt during systole. 5. Mild-to Mod tricuspid regurgitation 6. mild Pulm HTN Resident Activity Tracking Resident Involvement: Resident Care Provided Care Provided: Adult [facility]
--- NOTE | 2019-12-11 10:59 | Cardiology Progress Note ---
Date of Service December 11, 2019 Assessment & Plan (1) Atrial fibrillation with RVR: (2) Dilated cardiomyopathy: (3) Chronic systolic heart failure: (4) Mitral regurgitation: (5) Pulmonary hypertension: (6) Alcohol abuse: (7) Infarction of kidney: ASSESSMENT/PLAN: 1. AFib with RVR: We once again discussed the diagnosis and treatment strategies. Continue metoprolol tartrate as he has not been on a full 24 hour regimen at this time. Heart rate remains elevated. Start digoxin IV load today. AFib could be due to alcohol, cardiomyopathy, or mitral regurgitation (although MR likely secondary to annular dilation from underlying process). Would suspect alcohol is playing a large role. If heart rate is not reasonably controlled, we discussed transesophageal echo and cardioversion tomorrow. Risks and benefits were discussed with him in detail and he was agreeable. Check C OVID screen later today if these procedures are likely to occur. Agree with anticoagulation therapy. If rate controlled, will attempt rate control strategy for 4 weeks on anticoagulation therapy and then cardioversion. With cardioversion, will likely initiate amiodarone for a temporary treatment. 2. Cardiomyopathy: Likely due to alcohol or tachycardia in the setting of AFib. It is less likely that this is primarily from his mitral valve given the fact that his mitral valve appears otherwise structurally normal with annular dilation, likely from his cardiomyopathy. Continue metoprolol tartrate but after titration, replace with metoprolol succinate. Once rate is controlled, would recommend initiation of Entresto. Continue spironolactone. If there is no significant improvement in his LV systolic function with standard treatment and alcohol cessation, would consider ischemic evaluation. There is no urgent indication for angiography. He has no angina despite regular cardiovascular exercise/activity. Will first attempt to optimize medical therapy and then reassess. 3. Chronic systolic CHF: He appears to have elevated filling pressures on exam. Ordered another Lasix 20 mg IV x1. Strict I&Os. Daily weights. Low-sodium diet. 4. Mitral regurgitation: Likely due to annular dilation from his cardiomyopathy. Hopefully with improvement in his LV systolic function, MR will improve. Will continue to monitor. Discussed in detail with patient and his . 5. Pulmonary hypertension: Likely secondary to severe MR/CHF. Diurese as above. 6. Alcohol abuse: We discussed in detail the importance of alcohol cessation. Alcohol is a direct toxin to his myocardium and should be avoided. Monitor for withdrawal symptoms. His became tearful and is fully supportive of alcohol cessation. She does not drink alcohol. 7. Renal infarct: As per primary service. On heparin drip. Likely due to cardiac embolic source from left atrial appendage or even possibly LV thrombus given reduced LV systolic function. There was no thrombus noted on echo. 8. Disposition: Cardiology will continue to follow. Patient care was discussed with Dr. Arzate of the primary hospitalist service. Admission and Anticipated Discharge Date Admission Date: December 10, 2019 Subjective I was called earlier today by nursing staff. When the patient tried to lay down flat, he developed orthopnea and diaphoresis. He states that this is what has been happening at home when he tries to lay flat. He otherwise slept all night with his head elevated as he has been doing at home. When I came to the room, he was feeling better and sitting with the head of his bed elevated. He denies shortness of breath at the time of my evaluation. He denies chest pain, palpitations, syncope, near-syncope, edema, or bleeding. Nursing staff also notified me this morning that his heart rate was in the 130s while on metoprolol p.o.. Diltiazem drip had been discontinued. Intravenous digoxin was ordered at the time of her call. He did not recall all of the details from yesterday's discussion so we once again discussed atrial fibrillation, mitral regurgitation, cardiomyopathy, and how alcohol abuse plays a role in the AFib and cardiomyopathy. Because I was initially unavailable to come to the bedside when nursing staff called, I did contact Dr. Arzate of the primary hospitalist service, who promptly reported the bedside to evaluate. He did not feel that there was any sign or symptom of alcohol withdrawal at this time. His , Lea, was present at the bedside. Review of systems: As above. Physical Exam Physical Exam: Gen.: No acute distress. Alert and oriented. HEENT: Anicteric sclera. Neck: Mild JVD. Cardiac: PMI was prominent and laterally displaced. No ventricular heave. Irregularly irregular. Normal S1-S2. 2/6 holosystolic murmur best heard at the apex. No rubs or gallops. Pulmonary: Bibasilar rales. Abdomen: Soft, nondistended, with normoactive bowel sounds. No bruits noted. Tenderness noted of the left lower quadrant. Extremities: 2+ radial pulses bilaterally. 2+ posterior tibialis pulses bilaterally. No edema or cyanosis. No palpable cords. Psychiatric: Affect appears appropriate. Results & Data ([facility]) Vital Signs (Past 12 Hours) Vital Signs Temp Pulse Pulse Resp BP Pulse Ox 12/11/19 09:59 36.4 C L 128 H 18 101/73 98 12/11/19 09:57 128 H 12/11/19 07:38 36.4 C L 118 H 18 98/65 L 98 12/11/19 07:00 107 H 12/11/19 04:11 36.4 C L 113 H 18 98/72 L 94 12/11/19 01:01 95 H 112/72 12/10/19 23:48 36.6 C 80 18 90/63 L 94 Intake & Output 12/09/19 12/10/19 12/11/19 12/12/19 06:59 06:59 06:59 06:59 Intake Total 1320.417 / 1320.417 Output Total 1500 / 1500 Balance -179.583 / -179.583 Weight 86.3 kg 84.7 kg Laboratory Results Laboratory Results - last 24 hr 12/10/19 12/10/19 12/11/19 11:15 15:48 04:05 WBC 15.95 H RBC 5.14 Hgb 16.5 Hct 49.7 MCV 96.7 MCH 32.1 MCHC 33.2 RDW Std Deviation 46.1 RDW Coeff of Sharmin 13.1 Plt Count 273 MPV 11.6 H Immature Gran % (Auto) 0.4 Neut % (Auto) 76.0 Lymph % (Auto) 13.5 [place] % (Auto) 9.7 Eos % (Auto) 0.2 Baso % (Auto) 0.2 Neut # (Auto) 12.12 H Lymph # (Auto) 2.16 [place] # (Auto) 1.55 H Eos # (Auto) 0.03 Baso # (Auto) 0.03 Immature Gran # (Auto) 0.06 H APTT 62.1 H* PTT Ratio 2.2 Sodium Potassium Chloride Carbon Dioxide Anion Gap BUN Creatinine Est Cr Clr Drug Dosing Est GFR ( Amer) Est GFR (Non-Af Amer) BUN/Creatinine Ratio Glucose Calcium Magnesium C-Reactive Protein Folate Urine Color Dark Yellow Urine Appearance Clear Urine pH 6.5 Ur Specific [place] >= 1.045 H Urine Protein 2+ H Urine Glucose (UA) Negative Urine Ketones Trace H Urine Blood Negative Urine Nitrite Negative Urine Bilirubin Negative Urine Urobilinogen Negative Ur Leukocyte Esterase Negative Urine WBC (Auto) 1-5 Urine RBC (Auto) 0-4 U Hyaline Cast (Auto) 1-5 U Epithel Cells (Auto) 5-10 H Urine Bacteria (Auto) Negative 12/11/19 12/11/19 12/11/19 04:05 04:05 04:05 WBC RBC Hgb Hct MCV MCH MCHC RDW Std Deviation RDW Coeff of Sharmin Plt Count MPV Immature Gran % (Auto) Neut % (Auto) Lymph % (Auto) [place] % (Auto) Eos % (Auto) Baso % (Auto) Neut # (Auto) Lymph # (Auto) [place] # (Auto) Eos # (Auto) Baso # (Auto) Immature Gran # (Auto) APTT 46.4 H* PTT Ratio 1.7 Sodium 138 Potassium 3.9 Chloride 104 Carbon Dioxide 27 Anion Gap 7.0 BUN 15 Creatinine 1.47 H D Est Cr Clr Drug Dosing 75.3 Est GFR ( Amer) 66.8 Est GFR (Non-Af Amer) 57.6 BUN/Creatinine Ratio 9.9 L Glucose 162 H Calcium 9.5 Magnesium 1.9 C-Reactive Protein 0.34 H Folate Urine Color Urine Appearance Urine pH Ur Specific [place] Urine Protein Urine Glucose (UA) Urine Ketones Urine Blood Urine Nitrite Urine Bilirubin Urine Urobilinogen Ur Leukocyte Esterase Urine WBC (Auto) Urine RBC (Auto) U Hyaline Cast (Auto) U Epithel Cells (Auto) Urine Bacteria (Auto) 12/11/19 09:34 WBC RBC Hgb Hct MCV MCH MCHC RDW Std Deviation RDW Coeff of Sharmin Plt Count MPV Immature Gran % (Auto) Neut % (Auto) Lymph % (Auto) [place] % (Auto) Eos % (Auto) Baso % (Auto) Neut # (Auto) Lymph # (Auto) [place] # (Auto) Eos # (Auto) Baso # (Auto) Immature Gran # (Auto) APTT PTT Ratio Sodium Potassium Chloride Carbon Dioxide Anion Gap BUN Creatinine Est Cr Clr Drug Dosing Est GFR ( Amer) Est GFR (Non-Af Amer) BUN/Creatinine Ratio Glucose Calcium Magnesium C-Reactive Protein Folate Pending Urine Color Urine Appearance Urine pH Ur Specific [place] Urine Protein Urine Glucose (UA) Urine Ketones Urine Blood Urine Nitrite Urine Bilirubin Urine Urobilinogen Ur Leukocyte Esterase Urine WBC (Auto) Urine RBC (Auto) U Hyaline Cast (Auto) U Epithel Cells (Auto) Urine Bacteria (Auto) Diagnostic Findings Telemetry personally viewed: Atrial fibrillation with rapid ventricular response. Medications Administered Current Inpatient Medications Acetaminophen (Acetaminophen 325 Mg Tab) 650 mg PO Q4H PRN PRN Reason: Pain Stop: 01/09/20 10:18 Al Hydrox/Mg Hydrox/Simethicone (Aluminum/Magnesium Susp 30 Ml Udc) 15 ml PO Q4H PRN PRN Reason: Dyspepsia Stop: 01/09/20 10:18 Chlordiazepoxide HCl (Chlordiazepoxide Hcl 25 Mg Cap) 25 mg PO Q6H [facility]; Taper Stop: 12/13/19 09:59 Last Admin: 12/11/19 09:58 Dose: 25 mg Documented by: Chlordiazepoxide HCl (Chlordiazepoxide Hcl 10 Mg Cap) 10 mg PO Q8H RIGOBERTO Stop: 12/14/19 02:01 Chlordiazepoxide HCl (Chlordiazepoxide Hcl 5 Mg Cap) 5 mg PO Q12H RIGOBERTO Stop: 12/14/19 22:01 Hydromorphone HCl (Hydromorphone Inj 1 Mg/Ml Syringe) 1 mg IV Q2H PRN PRN Reason: Pain Stop: 12/24/19 15:41 Last Admin: 12/10/19 15:49 Dose: 1 mg Documented by: Heparin Sodium/Dextrose (Heparin Sodium/Dextrose) 25,000 units in 500 mls @ 30 mls/hr IV .[id number] [facility]; Protocol Stop: 01/09/20 08:29 Last Admin: 12/11/19 01:02 Dose: 1,500 units/hr, 30 mls/hr Documented by: Lorazepam (Ativan) 1 mg in 2 mls @ 2 mls/min IV ONE PRN; Protocol PRN Reason: EtoH Withdrawal AWSS 6-10 Stop: 01/10/20 09:15 Lorazepam (Ativan) 1 mg in 2 mls @ 2 mls/min IV UD PRN; Protocol PRN Reason: EtOH Withdrawl AWSS Score 6,7 Stop: 01/10/20 09:15 Lorazepam (Ativan) 2 mg in 4 mls @ 4 mls/min IV UD PRN; Protocol PRN Reason: EtOH Withdrawl AWSS Score 8,9 Stop: 01/10/20 09:15 Lorazepam (Ativan) 3 mg in 6 mls @ 4 mls/min IV ONCE PRN; Protocol PRN Reason: EtOH Withdrawl AWSS Score >=10 Stop: 01/10/20 09:15 Digoxin 250 mcg/ Syringe 10 mls @ 2 mls/min IV Q6H RIGOBERTO Stop: 12/11/19 23:59 Furosemide 20 mg/ Syringe 2 mls @ 4 mls/min IV ONE ONE Stop: 12/11/19 11:01 Magnesium Hydroxide (Magnesium Hydroxide Susp 30 Ml Udc) 30 ml PO Q12H PRN PRN Reason: Constipation Stop: 01/09/20 10:18 Metoprolol Tartrate (Metoprolol Tartrate 25 Mg Tab) 25 mg PO Q6H [facility] Stop: 01/09/20 18:59 Last Admin: 12/11/19 07:37 Dose: 25 mg Documented by: Morphine Sulfate (Morphine Sulfate 2 Mg/Ml Carp) 4 mg IV Q4 PRN PRN Reason: Pain Stop: 12/24/19 10:18 Last Admin: 12/10/19 15:30 Dose: 4 mg Documented by: Ondansetron HCl (Ondansetron Inj 2 Mg/Ml 2 Ml Vial) 4 mg IV Q6H PRN PRN Reason: Nausea Stop: 01/09/20 10:18 Last Admin: 12/10/19 15:30 Dose: 4 mg Documented by: Pantoprazole Sodium (Pantoprazole 40 Mg Tab) 40 mg PO DAILY [facility] Stop: 01/09/20 10:44 Last Admin: 12/11/19 08:21 Dose: 40 mg Documented by: Polyethylene Glycol (Polyethylene (Miralax) 17 Gm Pack) 17 gm PO DAILY PRN PRN Reason: Constipation Stop: 01/09/20 10:18 Spironolactone (Spironolactone 25 Mg Tab) 25 mg PO QAM [facility] Stop: 01/09/20 18:44 Last Admin: 12/11/19 08:20 Dose: 25 mg Documented by: Thiamine HCl (Thiamine Hcl 100 Mg Tab) 100 mg PO QAM [facility] Stop: 01/10/20 09:59 Last Admin: 12/11/19 10:57 Dose: 100 mg Documented by: PG Care Time/CCT Total # of Minutes Spent Total Time Spent with Patient: Total time spent is greater than 50% in coordination of care (as documented) at patient's floor/unit and/or counseling patient: Coding Level of Care Code 89345 Subseq Hosp Care Lvl 3 Diagnoses Atrial fibrillation with RVR I48.91 Dilated cardiomyopathy I42.0 Chronic systolic heart failure I50.22 Mitral regurgitation I34.0 Pulmonary hypertension I27.20 Alcohol abuse F10.10 Infarction of kidney N28.0
[2019-12-11] MEDS ORDERED: FUROSEMIDE 20 MG in SYRINGE 0 ML IV ONE (11:00)
[2019-12-11] MEDS ORDERED: DIGOXIN 500 MCG/2 ML AMP IV SCH (16:00)
[2019-12-11] MEDS: DIGOXIN 250 MCG in SYRINGE 9 ML IV SCH ×2 (16:42→22:42)
[2019-12-11] MEDS: ONDANSETRON INJ 2 MG/ML 2 ML VIAL IV PRN (17:03)
--- NOTE | 2019-12-11 17:42 | Billing Data ---
Date of Service December 11, 2019 Coding Level of Care Code 60918 Subseq Hosp Care Lvl 3
[2019-12-12] MEDS: chlordiazePOXIDE HCl 25 MG CAP PO SCH ×2 (03:10→10:38)
[2019-12-12] MEDS: METOPROLOL TARTRATE 25 MG TAB PO SCH ×2 (03:11→08:00)
[2019-12-12 06:46] LABS: Partial Thromboplastin Ratio 1.5; Partial Thromboplastin Time 43.1 Seconds (21.0-31.0)
[2019-12-12 06:59] LABS: BUN Creatinine Ratio 8.3 (10-20); Calcium 8.9 mg/dl (8.5-10.1); Est GFR (African American) 91.8; Est GFR (Non-African American) 79.2; Potassium 3.5 mmol/L (3.5-5.1)
[2019-12-12] MEDS ORDERED: HEPARIN IV BOLUS 3,000 UNITS in SYRINGE 0 ML IV ONE (07:00)
--- NOTE | 2019-12-12 09:18 | Hospitalist Progress Note ---
Date of Service December 12, 2019 Assessment & Plan (1) Atrial fibrillation with RVR: 44 yo with newly diagnosed Afib with RVR, CHF, Renal Infarct this admission. 1. Afib w/ RVR - Appreciate cardiology's continuing recommendations in this complex case - transitioned to Metoprolol succinate 50 mg BID with proper rate control - continuing digoxin 125 mcg - heparin drip for anticoagulation --> Eliquis - telemetry monitoring 2. Cardiomyopathy + CHF - TTE 12/09 showing MR, EF 20-25%, global hypokinesis as above in results section - most likely secondary to long running afib? 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 Infarcted Kidney - found on CT abd/pelv, wedge shaped lesion - most likely clot thrown from left heart with uncoagulated afib - possibly source of abdominal pain? Abdominal pain - would expect mesenteric ischemia to be pain worsened after eating, which patient denies - pain out of proportion to exam however without rebound or guarding - kidney pain referred to abdomen?? DVT ppx:transitioning to Eliquis FEN/GI: heart healthy diet Code Status: FULL CODE Dispo: PCU (2) Alcohol abuse: (3) Pulmonary hypertension: (4) Mitral regurgitation: (5) Dilated cardiomyopathy: (6) Infarction of kidney: Admission and Anticipated Discharge Date Admission Date: December 10, 2019 Subjective Feeling much better this morning. no palpitations, no chest pain, shortness of breath, nausea. Review of Systems Constitutional: no fever, no body aches, no fatigue and no weakness Respiratory: no cough and no dyspnea Cardiovascular: no chest pain, no dyspnea at rest, no dyspnea on exertion, no palpitations and no edema Physical Exam Physical Exam: Constitutional: tall thin man in no distress laying in bed Eyes: EOMI, pupils equal and reactive bilaterally, no scleral icterus Cardiac: irregularly irregular, normal rate, no murmurs rubs or gallops appreciated Pulm: CTA BL, no wheezes, rhonchi, crackles or rubs, moving air well throughout both lungs, no extra work of breathing Abd: soft, nondistended, nontender, no rebound or guarding Extremities: 2+ peripheral pulses, no edema Neuro: no focal deficits, moving all 4 limbs, A&Ox3 Results & Data Results & Data ([facility]) Vital Signs (Past 12 Hours) Vital Signs Temp Pulse Pulse Resp BP Pulse Ox 12/12/19 03:19 36.9 C 82 16 109/63 90 12/11/19 23:57 37.2 C 92 H 18 111/68 96 12/11/19 22:42 99 H Laboratory Results WBC 15.95 K/uL (4.8-10.8) H 12/11/19 04:05 RBC 5.14 M/uL (4.7-6.1) 12/11/19 04:05 Hgb 16.5 g/dL (14.0-18.0) 12/11/19 04:05 Hct 49.7 % (42-52) 12/11/19 04:05 MCV 96.7 fL (80-100) 12/11/19 04:05 MCH 32.1 pg (25-34) 12/11/19 04:05 MCHC 33.2 g/dL (32-36) 12/11/19 04:05 RDW Std Deviation 46.1 fL (36.4-46.3) 12/11/19 04:05 RDW Coeff of Sharmin 13.1 % (11.5-14.5) 12/11/19 04:05 Plt Count 273 K/uL (130-400) 12/11/19 04:05 MPV 11.6 fL (7.4-10.4) H 12/11/19 04:05 Immature Gran % (Auto) 0.4 % 12/11/19 04:05 Neut % (Auto) 76.0 % 12/11/19 04:05 Lymph % (Auto) 13.5 % 12/11/19 04:05 [place] % (Auto) 9.7 % 12/11/19 04:05 Eos % (Auto) 0.2 % 12/11/19 04:05 Baso % (Auto) 0.2 % 12/11/19 04:05 Neut # (Auto) 12.12 K/uL (1.4-6.5) H 12/11/19 04:05 Lymph # (Auto) 2.16 K/uL (1.2-3.4) 12/11/19 04:05 [place] # (Auto) 1.55 K/uL (0.11-0.59) H 12/11/19 04:05 Eos # (Auto) 0.03 K/uL (0-0.5) 12/11/19 04:05 Baso # (Auto) 0.03 K/uL (0-0.2) 12/11/19 04:05 Immature Gran # (Auto) 0.06 K/uL (0.00-0.02) H 12/11/19 04:05 PT 13.4 Seconds (9.0-12.0) H 12/10/19 06:36 INR 1.3 (0.9-1.1) H 12/10/19 06:36 APTT 43.1 Seconds (21.0-31.0) H 12/12/19 05:53 PTT Ratio 1.5 12/12/19 05:53 Sodium 140 mmol/L (136-145) 12/12/19 05:53 Potassium 3.5 mmol/L (3.5-5.1) 12/12/19 05:53 Chloride 105 mmol/L (98-107) 12/12/19 05:53 Carbon Dioxide 31 mmol/L (21-32) 12/12/19 05:53 Anion Gap 4.0 (3-11) 12/12/19 05:53 BUN 9 mg/dl (7-18) D 12/12/19 05:53 Creatinine 1.13 mg/dl (0.6-1.4) D 12/12/19 05:53 Est Cr Clr Drug Dosing 98.0 ml/min 12/12/19 05:53 Est GFR ( Amer) 91.8 12/12/19 05:53 Est GFR (Non-Af Amer) 79.2 12/12/19 05:53 BUN/Creatinine Ratio 8.3 (10-20) L 12/12/19 05:53 Glucose 96 mg/dl (70-99) 12/12/19 05:53 Calcium 8.9 mg/dl (8.5-10.1) 12/12/19 05:53 Magnesium 1.9 mg/dl (1.8-2.4) 12/11/19 04:05 Total Bilirubin 0.9 mg/dl (0.2-1) 12/10/19 06:36 AST 24 U/L (15-37) 12/10/19 06:36 ALT 45 U/L (12-78) 12/10/19 06:36 Alkaline Phosphatase 74 U/L (45-117) 12/10/19 06:36 Troponin I 0.019 ng/ml (0-0.045) 12/10/19 06:36 C-Reactive Protein 0.34 mg/dl (0-0.29) H 12/11/19 04:05 Total Protein 7.1 gm/dl (6.4-8.2) 12/10/19 06:36 Albumin 3.6 gm/dl (3.4-5.0) 12/10/19 06:36 Globulin 3.5 gm/dl (2.5-4.0) 12/10/19 06:36 Albumin/Globulin Ratio 1.0 (0.9-2) 12/10/19 06:36 Lipase 116 U/L (73-393) 12/10/19 06:36 Folate > 24.00 ng/ml (>5.38) 12/11/19 09:34 Urine Color Dark Yellow 12/10/19 11:15 Urine Appearance Clear (Clear) 12/10/19 11:15 Urine pH 6.5 (4.5-7.5) 12/10/19 11:15 Ur Specific [place] >= 1.045 (1.000-1.030) H 12/10/19 11:15 Urine Protein 2+ (Negative) H 12/10/19 11:15 Urine Glucose (UA) Negative (Negative) 12/10/19 11:15 Urine Ketones Trace (Negative) H 12/10/19 11:15 Urine Blood Negative (Negative) 12/10/19 11:15 Urine Nitrite Negative (Negative) 12/10/19 11:15 Urine Bilirubin Negative (Negative) 12/10/19 11:15 Urine Urobilinogen Negative (Negative) 12/10/19 11:15 Ur Leukocyte Esterase Negative (Negative) 12/10/19 11:15 Urine WBC (Auto) 1-5 /hpf (0-5) 12/10/19 11:15 Urine RBC (Auto) 0-4 /hpf (0-4) 12/10/19 11:15 U Hyaline Cast (Auto) 1-5 /lpf (0-5) 12/10/19 11:15 U Epithel Cells (Auto) 5-10 /lpf (0-5) H 12/10/19 11:15 Urine Bacteria (Auto) Negative (Negative) 12/10/19 11:15 COVID-19 Eval Order Covid19 [facility]Now [facility] 12/11/19 19:43 SARS-CoV-2, RNA, NAAT NEGATIVE (NEGATIVE) 12/11/19 19:43
[2019-12-12] MEDS ORDERED: METOPROLOL SUCC 50MG EXT REL TAB PO SCH (10:00)
[2019-12-12] MEDS: HEPARIN SODIUM/DEXTROSE 25,000 UNITS/500 ML BAG IV SCH ×2 (10:27→11:16)
[2019-12-12] MEDS: SPIRONOLACTONE 25 MG TAB PO SCH (10:35)
[2019-12-12] MEDS: PANTOprazole 40 MG TAB PO SCH (10:35)
--- NOTE | 2019-12-12 12:53 | Cardiology Progress Note ---
Date of Service December 12, 2019 Assessment & Plan (1) Atrial fibrillation with RVR: (2) Dilated cardiomyopathy: (3) Chronic systolic heart failure: (4) Mitral regurgitation: (5) Pulmonary hypertension: (6) Alcohol abuse: (7) Infarction of kidney: ASSESSMENT/PLAN: 1. AFib with RVR: Heart rate is now well controlled on metoprolol total of 100 mg daily. Agree with metoprolol succinate. Continue digoxin 125 mcg daily p.o.. Digoxin level in 1 week. Agree with anticoagulation therapy. Consider Eliquis on discharge. Can forego transesophageal echo and cardioversion today given recent embolic event and the fact that his heart rate is well controlled. Would anticipate consideration of cardioversion in 4 weeks after therapeutically anticoagulated, at which time a transesophageal echo may not be necessary. 2. Cardiomyopathy: Likely due to alcohol or tachycardia in the setting of AFib. It is less likely that this is primarily from his mitral valve given the fact that his mitral valve appears otherwise structurally normal with annular dilation, likely from his cardiomyopathy. Continue metoprolol succinate. Initiate Entresto today. Continue spironolactone. If there is no significant improvement in his LV systolic function with standard treatment and alcohol becka sation, would consider ischemic evaluation and transesophageal echo to further evaluate mitral valve. There is no urgent indication for angiography. He has had no angina despite regular cardiovascular exercise/activity. Optimize medical therapy. 3. Chronic systolic CHF: He appears euvolemic and no longer experiencing orthopnea. Continue spironolactone. Consider Lasix 20 mg p.o. p.r.n. weight gain, shortness of breath, or edema. He may not require daily dosing of loop diuretic. We discussed the importance of low-sodium diet, less than 2000 mg per day, and daily weights. Follow up in Heart failure program as scheduled in 1 week. 4. Mitral regurgitation: Likely due to annular dilation from his cardiomyopathy. Hopefully with improvement in his LV systolic function, MR will improve. Will monitor closely as an outpatient. 5. Pulmonary hypertension: Likely secondary to severe MR/CHF. Will follow closely as an outpatient. 6. Alcohol abuse: We discussed in detail the importance of alcohol cessation. Alcohol is a direct toxin to his myocardium and should be avoided. He states that he will not return to alcohol. 7. Renal infarct: As per primary service. On heparin drip. Likely due to cardiac embolic source from left atrial appendage or even possibly LV thrombus given reduced LV systolic function. There was no thrombus noted on echo. Abdominal pain has subsided. 8. Disposition: I will be away from the hospital this weekend. If he remains hospitalized and you have any questions or concerns, please do not hesitate to call the on-call pigs feet finisher. A call has been placed to Dr. Arzate of the primary hospitalist service to discuss recommendations/patient care. Follow-up with heart failure program next week. Cardiology office will also schedule appointment with me as an outpatient. Admission and Anticipated Discharge Date Admission Date: December 10, 2019 Subjective He feels much better today. He slept completely flat overnight and denies orthopnea. He denies shortness of breath, chest pain, palpitations, syncope, n ear-syncope, edema, or bleeding. He was made NPO overnight in anticipation of transesophageal echo and cardioversion. Fortunately, his heart rate has significantly improved is well controlled on digoxin and metoprolol 100 mg total per day. He then walked in the hallway and his heart rate increased appropriately without significant tachycardia. He met Sharifa Lovell today of the heart failure program. He was alone in his hospital room. Review of systems: As above. Physical Exam Physical Exam: Gen.: No acute distress. Alert and oriented. HEENT: Anicteric sclera. Neck: No significant JVD appreciated. Cardiac: No ventricular heave. Irregularly irregular but rate controlled in the 70s-80s. Normal S1-S2. 1/6 holosystolic murmur best heard at the apex. No rubs or gallops. Pulmonary: Clear to auscultation bilaterally without wheezes, rales, or rhonchi. Abdomen: Soft, nondistended, with normoactive bowel sounds. No bruits noted. Nontender. Extremities: 2+ radial pulses bilaterally. 2+ posterior tibialis pulses bilaterally. No edema or cyanosis. Psychiatric: Affect appears appropriate. Results & Data ([facility]) Vital Signs (Past 12 Hours) Vital Signs Temp Pulse Resp BP Pulse Ox Pulse Ox 12/12/19 11:18 37.0 C 78 16 128/68 12/12/19 09:00 99 12/12/19 03:19 36.9 C 82 16 109/63 90 Intake & Output 10/28/20 12/11/19 12/12/19 12/13/19 06:59 06:59 06:59 06:59 Intake Total 1320.417 / 8897.359 2912.5 / 1593.5 203.95 / 203.95 Output Total 1500 / 1500 900 / 900 401 / 401 Balance -179.583 / -179.583 693.5 / 693.5 -197.05 / -197.05 Weight 86.3 kg 84.7 kg 83.9 kg Laboratory Results Laboratory Results - last 24 hr 12/11/19 12/11/19 12/11/19 09:34 19:43 19:43 APTT PTT Ratio Sodium Potassium Chloride Carbon Dioxide Anion Gap BUN Creatinine Est Cr Clr Drug Dosing Est GFR ( Amer) Est GFR (Non-Af Amer) BUN/Creatinine Ratio Glucose Calcium Folate > 24.00 COVID-19 Eval Order Covid19 [facility]Now [facility] SARS-CoV-2, RNA, NAAT NEGATIVE 12/12/19 12/12/19 05:53 05:53 APTT 43.1 H PTT Ratio 1.5 Sodium 140 Potassium 3.5 Chloride 105 Carbon Dioxide 31 Anion Gap 4.0 BUN 9 D Creatinine 1.13 D Est Cr Clr Drug Dosing 98.0 Est GFR ( Amer) 91.8 Est GFR (Non-Af Amer) 79.2 BUN/Creatinine Ratio 8.3 L Glucose 96 Calcium 8.9 Folate COVID-19 Eval Order SARS-CoV-2, RNA, NAAT Diagnostic Findings Telemetry personally reviewed: Atrial fibrillation but much improved heart rate. Medications Administered Current Inpatient Medications Acetaminophen (Acetaminophen 325 Mg Tab) 650 mg PO Q4H PRN PRN Reason: Pain Stop: 01/09/20 10:18 Al Hydrox/Mg Hydrox/Simethicone (Aluminum/Magnesium Susp 30 Ml Udc) 15 ml PO Q4H PRN PRN Reason: Dyspepsia Stop: 01/09/20 10:18 Chlordiazepoxide HCl (Chlordiazepoxide Hcl 25 Mg Cap) 25 mg PO Q8H RIGOBERTO; Taper Stop: 12/13/19 09:59 Last Admin: 12/12/19 10:38 Dose: 25 mg Documented by: Chlordiazepoxide HCl (Chlordiazepoxide Hcl 10 Mg Cap) 10 mg PO Q8H RIGOBERTO Stop: 12/14/19 02:01 Chlordiazepoxide HCl (Chlordiazepoxide Hcl 5 Mg Cap) 5 mg PO Q12H [facility] Stop: 12/14/19 22:01 Digoxin (Digoxin 0.125 Mg Tab) 0.125 mg PO DAILY@1600 [facility] Stop: 01/11/20 15:59 Hydromorphone HCl (Hydromorphone Inj 1 Mg/Ml Syringe) 1 mg IV Q2H PRN PRN Reason: Pain Stop: 12/24/19 15:41 Last Admin: 12/10/19 15:49 Dose: 1 mg Documented by: Heparin Sodium/Dextrose (Heparin Sodium/Dextrose) 25,000 units in 500 mls @ 33 mls/hr IV .[id number] [facility]; Protocol Stop: 01/09/20 08:29 Last Admin: 12/12/19 11:16 Dose: 1,650 units/hr, 33 mls/hr Documented by: Lorazepam (Ativan) 1 mg in 2 mls @ 2 mls/min IV UD PRN; Protocol PRN Reason: EtOH Withdrawl AWSS Score 6,7 Stop: 01/10/20 09:15 Lorazepam (Ativan) 2 mg in 4 mls @ 4 mls/min IV UD PRN; Protocol PRN Reason: EtOH Withdrawl AWSS Score 8,9 Stop: 01/10/20 09:15 Lorazepam (Ativan) 3 mg in 6 mls @ 4 mls/min IV ONCE PRN; Protocol PRN Reason: EtOH Withdrawl AWSS Score >=10 Stop: 01/10/20 09:15 Magnesium Hydroxide (Magnesium Hydroxide Susp 30 Ml Udc) 30 ml PO Q12H PRN PRN Reason: Constipation Stop: 01/09/20 10:18 Metoprolol Succinate (Metoprolol Succ 50mg Ext Rel Tab) 50 mg PO BID [facility] Stop: 01/11/20 09:59 Last Admin: 12/12/19 10:36 Dose: 50 mg Documented by: Morphine Sulfate (Morphine Sulfate 2 Mg/Ml Carp) 4 mg IV Q4 PRN PRN Reason: Pain Stop: 12/24/19 10:18 Last Admin: 12/10/19 15:30 Dose: 4 mg Documented by: Ondansetron HCl (Ondansetron Inj 2 Mg/Ml 2 Ml Vial) 4 mg IV Q6H PRN PRN Reason: Nausea Stop: 01/09/20 10:18 Last Admin: 12/11/19 17:03 Dose: 4 mg Documented by: Pantoprazole Sodium (Pantoprazole 40 Mg Tab) 40 mg PO DAILY [facility] Stop: 01/09/20 10:44 Last Admin: 12/12/19 10:35 Dose: 40 mg Documented by: Polyethylene Glycol (Polyethylene (Miralax) 17 Gm Pack) 17 gm PO DAILY PRN PRN Reason: Constipation Stop: 01/09/20 10:18 Sacubitril/Valsartan (Sacubitril-Valsartan 24-26 Mg Tab) 1 tab PO BID [facility] Stop: 01/11/20 20:59 Spironolactone (Spironolactone 25 Mg Tab) 25 mg PO QAM [facility] Stop: 01/09/20 18:44 Last Admin: 12/12/19 10:35 Dose: 25 mg Documented by: PG Care Time/CCT Total # of Minutes Spent Total Time Spent with Patient: Total time spent is greater than 50% in coordination of care (as documented) at patient's floor/unit and/or counseling patient: Coding Level of Care Code 82846 Subseq Hosp Care Lvl 3 Diagnoses Atrial fibrillation with RVR I48.91 Dilated cardiomyopathy I42.0 Chronic systolic heart failure I50.22 Mitral regurgitation I34.0 Pulmonary hypertension I27.20 Alcohol abuse F10.10 Infarction of kidney N28.0
[2019-12-12 14:41] LABS: Partial Thromboplastin Time 56.9 Seconds (21.0-31.0)
--- NOTE | 2019-12-12 14:43 | Discharge Summary ---
Date of Service December 12, 2019 Admission HPI Per Admitting Provider woke up around 1:30 w flank pain -notes fairly intense and normally he notes he has a pretty high tolerance for pain. pain unremitting - came to ER for further eval - found to be in afib/RVR and also found to have renal infarct appearing to be embolic notes that for the last week or so he's had cough and mild dyspnea - not enough to get in the way of what he's normally doing - but still something noticeable. notes that last night she saw him breathing really heavily but he apparently didn't really feel sx then. 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 no other active / acute sx. ROS otherwise negative except for as above dad has CAD/pacer - first onset of heart disease probably mid 60's pt drinks about 6 beers a day, smokes marijuana more or less daily. 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 occassional faint dry cough no conversational dyspnea abd soft nd (+) L abd and L CVA tenderness no guarding no rebound no rigidity ext no c/c/e no calf tenderness skin no rashes no pallor or icterus neuro cn 2-12 grossly intact gross motor and sensory intact without notable focal deficits msk - normal spinal alignment, CVA tenderness does not appear to reflect rib or muscle tenderness. no notable joint effusions or restrictions mental good recent and remote recall normal (quite stoic) mood and affect good judgement and insight Principal Diagnosis new afib, dilated cardiomyopathy Discharge Exam Constitutional: in no apparent distress, sitting comfortably in bed. Eyes: EOMI, pupils equal and reactive bilaterally, no scleral icterus Cardiac: RRR, no murmurs, gallops or rubs. Normal S1, S2 Pulm: CTA BL, no wheezes, rhonchi, crackles or rubs, moving air well throughout both lungs Abd: soft, nontender, nondistended, normal bowel sounds, no rebound or guarding Extremities: 2+ peripheral pulses, no edema Neuro: no focal deficits, moving all 4 limbs, A&Ox3 Discharge Data Allergies Allergy/AdvReac Type Severity Reaction Status Date / Time No Known Allergies Allergy Unverified 12/10/19 06:21 Consultations 12/10/19 08:32 ED Decision to Admit Stat 12/10/19 14:07 Consult Cardiology Routine Ordered Studies 12/10/19 07:16 CT abd pelvis IV con only Stat Hospital Course (1) Atrial fibrillation with RVR: 44 yo with newly diagnosed Afib with RVR, CHF, Renal Infarct this admission. New onset Afib w/ RVR: Discharged on Metoprolol Succinate 50 mg BID for rate control. Started on Eliquis 5 mg BID for anticoagulation. New Cardiomyopathy and CHF: TTE 12/09 showing MR, EF 20-25%, global hypokinesis, mitral regurgitation, most likely due to long running afib and myocardial injury from alcohol. Cardiology recommended ischemic etiology only if no improvement with current medications. Started on Entresto , spironolactone 25 mg AM, and lasix 20 mg daily. Infarcted Kidney: found on CT abd/pelv, most likely clot thrown from uncoagulated afib Follow up with Heart Failure Clinic. Heavily counseled on EtOH cessation. Other medical conditions managed per home regimens. Total Time Total Time Spent Total Time Spent (In Minutes): <30 Discharge Plan Discharge Items Patient Disposition: Home - Self-Care Reason For Visit: NEW AFIB, RVR, RENAL INFARCT Discharge Diagnosis: New Afib with RVR, renal infarct Condition on Discharge: Good Activity: Per Instructions section Non-emergency contact: Primary Care Provider and Mine Boss Call non-emergency contact if: you have any medication questions and your symptoms worsen Follow-up/Referrals: Kristian Jarrett CRNP [Primary Care Provider] - 12/17/19 8:20 am Sharifa Lovell PA-C [Physician Lever Miller] - 12/19/19 10:00 am (Congestive Heart Failure Program Appointment Information Early follow up is essential to managing your heart failure. An appointment has been scheduled for you with the [facility] Physician [facility] Heart Failure Program within 7 days of discharge. Anticipate this visit to be 30-60 minutes long. Please expect a twist packer phone call from one of our nurses approximately 48 hours from discharge. They will also be placing an order for lab work to be completed 1-2 days prior to your heart failure follow up appointment. Please be sure to have this done so we can go over the results when you come in. Office Location The cardiology office building is located in front of the hospital at [address]. Bring the following with you to your follow-up doctor appointments: Please bring your daily weight log any discharge paperwork all of your medication bottles with you to this visit. ) Diet: Heart Healthy Addtl Attending Provider Instructions: You were admitted to the hospital for a workup of new onset Atrial Fibrillation with Rapid Ventricular Rate (Afib with RVR), as well as an infarcted kidney. As part of your workup, you had a cardiac echo performed which showed that your heart has trouble globally squeezing as hard as it's supposed to, and also doesn't push forward as much blood as it should (Heart Failure with an Ejection Fraction of 20-25%). Cardiology discussed that this is most likely secondary to alcohol use as alcohol is a cardiac toxin and causes direct damage. To try and help reduce the strain your heart is under and help it remodel appropriately, you were started on Spironolactone and Entresto. With heart failure, it is vitally important to be on a no-salt diet and to avoid cardio-toxic substances l juni alcohol so that your heart doesn't get put under additional stress. It is also important that you weigh yourself every day. If you notice that you are quickly gaining weight (1-3 pounds overnight) it is most likely water weight that your body is retaining. We are sending you home with a medication called Lasix that you should take if you notice you are gaining weight. Your heart rate on admission was very high due to the Afib and required initiation of new medication (Metoprolol, Digoxin) to help control it. Because atrial fibrillation inherently is a disconnect between the top and bottom of your heart, it leads to clot formation in the left side of your heart that can be pushed forward into your body and cause clots (like the one on your kidney) and strokes. To protect you from this and try to reduce the size of any clot that was already there, we placed you on heparin in the hospital. At home you will be taking Eliquis twice a day to achieve this same effect of clot prevention. Cardiology believes there is still a chance to electrically convert you out of atrial fibrillation, and would like you to follow up in their office in 4 weeks to try to do so. New medications: Metoprolol succinate 50 mg twice a day Eliquis 5 mg twice a day Entresto 24/25 twice a day Spironolactone 25 mg once a day Lasix 20 mg as needed for fluid weight gain Follow up with the Heart Failure Clinic in one week and contact your home sales consultant if you have any questions. Addtl Advertising Assistant Provider Instructions: Call your Primary Care doctor if any of the following symptoms or problems start or get worse: * Shortness of breath or difficulty breathing * Wake up at night short of breath * Chest pain * Cough * Swelling of your hands, feet, or legs * More fatigued or tired with your normal activity * Palpitations - sudden fast heart beats WEIGHT * Weigh yourself every morning after using the bathroom. * Use the same scale. * Wear the same amount of clothing. * Write your weight down on a chart. * Call your Primary Care doctor if you gain more than 2-3 pounds in 1-2 days. MEDICATIONS * Use this discharge instruction sheet for medication instructions. * Take your medications at the time your doctor ordered. * Do not skip a dose of your medicines. * If you miss a dose of medicine, take it as soon as possible, but DO NOT DOUBLE A DOSE. * Read your medicine information when you get home. * Know all of the side effects of your medicine. If in doubt, ask your pharmacist * Call your Primary Care doctor's office if you have any side effects. * Be sure all of your doctors know what medicine and herbs you take (including cold, flu, and herbal medicine). Take the following with you to your follow-up doctor appointments: * Weight Chart * Medication List * List of questions Do not drink excessive alcohol, beer or wine. Pending Studies at Discharge: No Stand-Alone Forms: My [employer], Smoking Cessation Medications and DC Order Prescriptions: New digoxin [Digitek] 125 mcg (0.125 mg) Tablet 125 mcg PO DAILY@1600 Qty: 30 RF: 0 metoprolol succinate 50 mg Tablet Extended Release 24 Hr 50 mg PO BID Qty: 60 RF: 0 Entresto 24-26 mg Tablet 1 tab PO BID Qty: 60 RF: 0 spironolactone 25 mg Tablet 25 mg PO QAM Qty: 30 RF: 0 furosemide [Lasix] 20 mg tablet 20 mg PO DAILY PRN (Reason: weight gain) Qty: 30 RF: 0 Continued omeprazole 20 mg capsule,delayed release(DR/EC) 20 mg PO QAM Qty: 90 RF: 3 Discharge Orders: Discharge Order (Routine); Ordered 12/12/19 Ordered By: Sarahi Thayer Admission Data Admit Date/Time: 12/10/19 08:41 Attending Provider: Tamir Arzate Admit Provider: Tamir Arzate Primary Care Provider: Kristian Jarrett Other Providers: Tamir Arzate ; Geovanny Briseno ; Sarahi Thayer Other Interventions: Discharge Summary Assessment (RN) Last Done: 12/12/19 14:44 Supervising Physician Co-Signing Physician Notes I personally examined the patient and verified all vincent points of history and exam, discussed case, and agree with decision making with Dr Thayer feeling better feels up to going home cardiology input appreciated doing well off EtOH and understands need for f/u vitals noted nad heent nc at mmm breathing unlabored. rates now controlled. no focal neuro deficits new onset afib/RVR w subsequent embolic acute kidney injury - rate control, anticoagluation, follow Cr as outpt acute on chronic HFrEF - question EtOH driving CHF, MR driving CHF, or both. home on meds as above EtOH abuse - cessation otherwise as above Resident Activity Tracking Resident Involvement: Resident Care Provided Care Provided: Adult Hospital Medicine
[2019-12-12] MEDS ORDERED: DIGOXIN 0.125 MG TAB PO SCH (16:00)
--- NOTE | 2019-12-12 20:04 | Billing Data ---
Date of Service December 12, 2019 Coding Level of Care Code D/C Day Management <30 mins
[2019-12-12] MEDS ORDERED: SACUBITRIL-VALSARTAN 24-26 MG TAB PO SCH (21:00)
[2019-12-14] MEDS ORDERED: chlordiazePOXIDE HCl 5 MG CAP PO SCH (10:00)
== END 2019-12-12 17:07 | disposition home or self-care (01) | DRG 308 ==
LOC: ED 06:12 → 2S 08:41